=== PATIENT | female | born 1955 | race Caucasian/White ===

== ENCOUNTER → 2016-07-08 | Outpatient (CLI) | payer OTHER, MEDICAID ==
[~2016-07-08] MED LIST: 'XANAX1 MG PO; ALBUTEROL0.09 MG/A2 IH; ALL DAY ALLERGY10 MG PO; ALPRAZOLAM2 MG PO; AMBIEN10 MG PO; ANAPROX DS550 MG PO; ATIVAN1 MG PO; ATIVAN2 MG PO; BACTRIM DS 8001 TA1 PO; CARAFATE1 G1 PO; CARTIA XT180 MG PO; CATAFLAM50 MG PO; CIPRO250 MG PO; CIPRO500 MG PO; CIPROFLOXACIN500 MG PO; CYCLOBENZAPRINE10 MG PO; DAYPRO600 M1 PO; DELTASONE10 MG PO; DEPAKOTE250 MG PO; DEPAKOTE500 MG PO; DIFLUCAN100 MG PO; DOXYCYCLINE100 M3 PO; EFFEXOR-XR150 MG PO; ESKALITH-CR450 MG PO; FLEXERIL10 MG PO; FLONASE 0.05% 121 EA NAS; FOSAMAX70 M1 PO; HYDROCODONE BIT1 T11 PO; KLONOPIN2 MG PO; LAMICTAL1 TAB PO; LAMOTRIGINE150 MG PO; LATU120T PO; LOMOTIL 0.025 M1 TAB PO; MEDROL DOSEPAK4 MG PO; MELOXICAM7.5 MG PO; MIRTAZAPINE15 M2 PO; MOBIC7.5 MG PO; MOTRIN600 MG PO; MOTRIN800 MG PO; Motrin,Rufen800 MG PO; NAPROSYN500 MG PO; OMNICEF300 MG PO; PEPCID20 MG PO; PERCOCET 325 MG1 TA2 PO; PERCOCET 325 MG1 TA7 PO; PHENERGAN W/DM120 ML PO; PHENYTOIN100 MG PO; PREDNICOT10 MG PO; PREDNISONE10 MG PO; PREDNISONE20 MG PO; PRILOSEC20 M1 PO; PRILOSEC20 MG PO; PROAIR HFA0.09 MG/AC IH; PROAIR HFA8.5 GM INH; PROMETHAZINE12.5 M5 PO; Percocet 325 MG1 TAB PO; QVAR 80MCG/INH7.3 G1 IH; REGLAN5 MG PO; RISPERDAL3 MG PO; RISPERIDONE3 M2 PO; ROBAXIN750 MG PO; ROBITUSSIN AC 110 ML PO; ROPINIROLE HCL2 MG PO; SUBOXONE 12 MG1 EACH SL; SUBOXONE 8 MG-21 TA2 SL; THERAPEUTIC VIT1 CAP PO; TORADOL10 MG PO; VENLAFAXINE HY150 M2 PO; VENLAFAXINE HYD75 M3 PO; VIBRAMYCIN100 MG PO; VICODIN 5/500 505 MG PO; VICODIN ES 7501 TA1 PO; VISTARIL50 MG PO; XANAX XR3 MG PO; XANAX2 M1 PO; ZITHROMAX250 MG PO; ZOFRAN ODT4 MG PO; ZOFRAN4 MG PO; ZOLPIDEM TART10 MG PO; ZYPREXA10 MG PO; Zofran4 MG PO; [UNRECOGNIZED DRUG - OTHER]
== END | disposition home or self-care (01) ==
LOC: MRI 06-27 11:00
DX: M75.91 Shoulder lesion, unspecified, right shoulder (principal)

== ENCOUNTER 2016-09-17 04:50 | Emergency (ER) | payer OTHER, MEDICAID ==
[~2016-09-17] VITALS: Ht 157.4 cm; Wt 74.8 kg
[2016-09-17 04:53] VITALS: BP 163/78
== END 2016-09-17 06:13 | disposition left against medical advice (07) ==
LOC: ED 04:50
DX: M25.511 Pain in right shoulder (principal); F17.200 Nicotine dependence, unspecified, uncomplicated; Z90.49 Acquired absence of other specified parts of digestive tract; E78.00 Pure hypercholesterolemia, unspecified; K21.9 Gastro-esophageal reflux disease without esophagitis; J44.9 Chronic obstructive pulmonary disease, unspecified; J45.909 Unspecified asthma, uncomplicated; Z79.899 Other long term (current) drug therapy

== ENCOUNTER → 2016-10-10 | Outpatient (CLI) | payer OTHER, MEDICAID | END | disposition home or self-care (01) | LOC: RAD 09:55 | DX: M48.07 Spinal stenosis, lumbosacral region (principal); I70.0 Atherosclerosis of aorta; G89.29 Other chronic pain ==

== ENCOUNTER → 2016-10-18 | Outpatient (CLI) | payer OTHER, MEDICAID | END | disposition home or self-care (01) | LOC: ORTHO 02:00 | DX: M47.892 Other spondylosis, cervical region (principal); M25.78 Osteophyte, vertebrae; M75.41 Impingement syndrome of right shoulder; M25.531 Pain in right wrist ==

== ENCOUNTER → 2017-01-17 | Outpatient (CLI) | payer OTHER, MEDICAID | END | disposition home or self-care (01) | LOC: RAD 09:55 | DX: M16.11 Unilateral primary osteoarthritis, right hip (principal) ==

== ENCOUNTER → 2017-03-06 | Outpatient (CLI) | payer OTHER, MEDICAID | END | disposition home or self-care (01) | LOC: MRI 03-03 13:00 | DX: D32.9 Benign neoplasm of meninges, unspecified (principal); I67.82 Cerebral ischemia ==

== ENCOUNTER 2017-05-13 08:58 | Emergency (ER) | payer BC, MEDICAID ==
[~2017-05-13] VITALS: Ht 157.4 cm; Wt 68.9 kg
[2017-05-13 09:06] VITALS: BP 177/74
[2017-05-13 09:50] LABS: BASO % 0.3 % (0.0-1.0); EOS % 0.4 % (1.0-4.0); HEMATOCRIT 42.3 % (37.0-47.0); HEMOGLOBIN 14.4 g/dl (12.0-16.0); LYMPH # 1.2 10*3/uL (1.3-4.4); LYMPH % 12.8 % (27.0-41.0); MEAN CELL VOLUME 86.2 fl (81.0-99.0); MEAN CORPUSCULAR HGB 29.3 pg (27.0-31.0); MEAN PLATELET VOLUME 10.1 fl (9.6-12.3); MONO # 0.5 10*3/uL (0.1-1.0); MONO % 5.6 % (3.0-9.0); NEUT # 7.5 10*3/uL (2.3-7.9); NEUT % 80.6 % (47.0-73.0); PLATELET COUNT AUTOMATED 346 10*3/uL (130-400); RED BLOOD COUNT 4.91 10*6/uL (4.10-5.10); RED CELL DISTRI WIDTH 14.9 % (0-14.5); WHITE BLOOD COUNT 9.3 10*3/uL (4.8-10.8)
[2017-05-13 10:00] LABS: BILIRUBIN NEGATIVE (NEGATIVE); BLOOD NEGATIVE (NEGATIVE); CLARITY SL CLOUDY (CLEAR); COLOR YELLOW (YELLOW); GLUCOSE NEGATIVE (NEGATIVE); KETONE NEGATIVE (NEGATIVE); LEUKO ESTERASE NEGATIVE (NEGATIVE); NITRITE NEGATIVE (NEGATIVE); PH 8.5 (5.0-9.0); UROBILINOGEN 0.2 E.U./dl (0.2-1.0)
[2017-05-13 10:04] LABS: ALBUMIN 3.9 gm/dl (3.1-4.5); ALKALINE PHOSPHATASE 126 U/L (45-117); BUN 10 mg/dl (7-24); CHLORIDE 108 mmol/L (98-107); CREATININE 0.88 mg/dL (0.55-1.02); POTASSIUM 3.6 mmol/L (3.5-5.1); SGOT/AST 19 IU/L (3-35); SGPT/ALT 17 U/L (12-78); SODIUM 141 mmol/L (136-145); TOTAL PROTEIN 7.9 gm/dL (6.4-8.2)
[2017-05-13 10:21] LABS: BACTERIA 1+
[2017-05-13] MEDS ORDERED: Zofran4 MG PO (10:30)
== END 2017-05-13 10:41 | disposition home or self-care (01) ==
LOC: ED 08:58
PROVIDERS: Emergency Medicine
DX: K29.70 Gastritis, unspecified, without bleeding (principal); J45.909 Unspecified asthma, uncomplicated; F41.9 Anxiety disorder, unspecified; G89.29 Other chronic pain; J44.9 Chronic obstructive pulmonary disease, unspecified; F32.9 Major depressive disorder, single episode, unspecified; K21.9 Gastro-esophageal reflux disease without esophagitis; E78.00 Pure hypercholesterolemia, unspecified; F17.200 Nicotine dependence, unspecified, uncomplicated; Z68.29 Body mass index [BMI] 29.0-29.9, adult; Z79.899 Other long term (current) drug therapy

== ENCOUNTER 2017-05-17 02:31 | Emergency (ER) | payer BC, MEDICAID ==
[~2017-05-17] VITALS: Ht 162.5 cm; Wt 65.8 kg
--- NOTE | ~2017-05-17 | EKG ---
[place], [place] ELECTROCARDIOGRAM REPORT NAME: ETHEL CASTRO UNIT #: [id number] ROOM: DOCTOR: ANDREINA CARDENAS MD BIRTHDATE: [birth year] DOS: 05/17/2017 TIME: 0317 hours. Normal sinus rhythm at 73 beats per minute. The tracing is normal. No previous tracing is available for comparison. ANDREINA CARDENAS MD CM:EKGRPT:ELECTROCARDIOGRAM REPORT 1719 [id number] ANDREINA CARDENAS MD
[2017-05-17 03:21] LABS: BASO % 0.3 % (0.0-1.0); EOS # 0.1 10*3/uL (0.0-0.4); EOS % 1.4 % (1.0-4.0); HEMATOCRIT 41.6 % (37.0-47.0); HEMOGLOBIN 13.9 g/dl (12.0-16.0); LYMPH # 2.2 10*3/uL (1.3-4.4); LYMPH % 23.4 % (27.0-41.0); MEAN CELL VOLUME 86.3 fl (81.0-99.0); MEAN CORPUSCULAR HGB 28.8 pg (27.0-31.0); MEAN CORPUSCULAR HGB CONC 33.4 g/dl (33.0-37.0); MEAN PLATELET VOLUME 10.2 fl (9.6-12.3); MONO # 0.7 10*3/uL (0.1-1.0); NEUT # 6.2 10*3/uL (2.3-7.9); NEUT % 66.6 % (47.0-73.0); PLATELET COUNT AUTOMATED 318 10*3/uL (130-400); RED BLOOD COUNT 4.82 10*6/uL (4.10-5.10); RED CELL DISTRI WIDTH 14.5 % (0-14.5); WHITE BLOOD COUNT 9.3 10*3/uL (4.8-10.8)
[2017-05-17 03:44] LABS: ALBUMIN 3.6 gm/dl (3.1-4.5); ALKALINE PHOSPHATASE 109 U/L (45-117); BUN 11 mg/dl (7-24); CHLORIDE 111 mmol/L (98-107); CREATININE 0.67 mg/dL (0.55-1.02); LIPASE 395 U/L (73-393); SGOT/AST 28 IU/L (3-35); SGPT/ALT 36 U/L (12-78); SODIUM 143 mmol/L (136-145); TOTAL PROTEIN 7.1 gm/dL (6.4-8.2)
[2017-05-17 03:45] LABS: TROPONIN I < 0.015 ng/ml (<0.045)
[2017-05-17 03:46] LABS: BILIRUBIN NEGATIVE (NEGATIVE); BLOOD NEGATIVE (NEGATIVE); CLARITY SL CLOUDY (CLEAR); COLOR YELLOW (YELLOW); GLUCOSE NEGATIVE (NEGATIVE); KETONE NEGATIVE (NEGATIVE); LEUKO ESTERASE NEGATIVE (NEGATIVE); NITRITE NEGATIVE (NEGATIVE); PH 7.5 (5.0-9.0); UROBILINOGEN 0.2 E.U./dl (0.2-1.0)
[2017-05-17 04:05] LABS: BACTERIA 1+; EPITHELIAL CELLS 15-20; YEAST 1+
[2017-05-17 04:23] VITALS: BP 143/59
[2017-05-17] MEDS ORDERED: Phenergan25 MG PO (06:01)
== END 2017-05-17 06:39 | disposition home or self-care (01) ==
LOC: ED 02:31
PROVIDERS: Emergency Medicine Emergency Medical Services
DX: K52.9 Noninfective gastroenteritis and colitis, unspecified (principal); J44.9 Chronic obstructive pulmonary disease, unspecified; G89.29 Other chronic pain; K21.9 Gastro-esophageal reflux disease without esophagitis; E78.00 Pure hypercholesterolemia, unspecified; F17.200 Nicotine dependence, unspecified, uncomplicated; E66.9 Obesity, unspecified; Z68.29 Body mass index [BMI] 29.0-29.9, adult; Z90.89 Acquired absence of other organs; Z98.890 Other specified postprocedural states; Z79.899 Other long term (current) drug therapy

== ENCOUNTER → 2017-05-26 | Outpatient (CLI) | payer BC, MEDICAID ==
[~2017-05-26] MED LIST changes: +Phenergan25 MG PO
== END | disposition home or self-care (01) ==
LOC: MRI 12:34
DX: N83.201 Unspecified ovarian cyst, right side (principal); K57.30 Diverticulosis of large intestine without perforation or abscess without bleeding; R63.4 Abnormal weight loss

== ENCOUNTER 2017-08-18 16:39 | Emergency (ER) | payer OTHER, MEDICAID ==
[~2017-08-18] VITALS: Wt 65.8 kg
[2017-08-18 16:39] VITALS: BP 127/62
== END 2017-08-18 17:54 | disposition home or self-care (01) ==
LOC: ED 16:39
DX: G89.18 Other acute postprocedural pain (principal); J44.9 Chronic obstructive pulmonary disease, unspecified; K21.9 Gastro-esophageal reflux disease without esophagitis; E78.00 Pure hypercholesterolemia, unspecified; E66.9 Obesity, unspecified; J45.909 Unspecified asthma, uncomplicated; I10 Essential (primary) hypertension; I25.10 Atherosclerotic heart disease of native coronary artery without angina pectoris; Z98.890 Other specified postprocedural states; Z68.29 Body mass index [BMI] 29.0-29.9, adult

== ENCOUNTER 2017-08-23 03:47 | Inpatient (IN) | payer OTHER, MEDICAID ==
[2017-08-23] VITALS (7 sets, daily range): BP systolic 116–140; BP diastolic 50–76
[~2017-08-23] VITALS: Ht 157.4 cm; Wt 67.3 kg
--- NOTE | ~2017-08-23 | WRIGHTHP ---
[place], [place] PATIENT HISTORY AND PHYSICAL EXAM NAME: ETHEL CASTRO [facility] #: [id number] UNIT #: [id number] ROOM: 503 DOCTOR: PATRICIA GUTHRIE MD BIRTHDATE: [birth year] DOS: 08/23/2017 HISTORY OF PRESENT ILLNESS: The patient is a 61-year-old female with a past medical history of; 1. COPD. 2. Nicotine smoke dependence. 3. Bipolar disorder. 4. Chronic primary insomnia. 5. GERD and esophagitis. 6. Generalized anxiety disorder. The patient presented to the Emergency Department with some complaints of abdominal pains in the right lower quadrant. CT scan of the abdomen was performed, which showed recent partial right nephrectomy with some post-surgical changes. The findings of the CAT scan could just be postsurgical normal expected postsurgical changes versus an infection. The patient not showing any other signs of infection, no leukocytosis, no significant fever and she is eating well. No chest pain, no shortness of breath, no GI or urinary symptoms. REVIEW OF SYSTEMS: LUNGS: The patient smokes cigarettes and has chronic shortness of breath. GASTROINTESTINAL: No nausea, vomiting or diarrhea, but the patient says she has not moved her bowels recently. CARDIOVASCULAR: No chest pains or palpitations. FAMILY HISTORY: Noncontributory. MEDICATIONS: The patient takes venlafaxine, omeprazole, Latuda, lamotrigine, diltiazem, cetirizine, venlafaxine, ropinirole, risperidone, mirtazapine and Percocet for pain. ALLERGIES: No known drug allergies. PHYSICAL EXAMINATION: GENERAL APPEARANCE: The patient is alert and oriented x 3, in no visible distress. HEENT AND NECK: Extraocular movements are intact. Sclerae are anicteric. Oral mucosa is moist and clean. No obvious facial weakness. Neck is supple without any lymphadenopathy. No thyromegaly. No JVD. No carotid arterial bruits. LUNGS: Clear to auscultation. No wheezing. No rhonchi. CARDIOVASCULAR SYSTEM: Heart rate is regular in rate and rhythm. S1 and S2 normally audible. No significant murmur or any other abnormal cardiac sounds. ABDOMEN: Obese abdomen. Healing surgical incisions without any signs of infection. Abdominal exam is benign. EXTREMITIES: Without significant cyanosis or edema. Warm to touch. CENTRAL NERVOUS SYSTEM: Alert and oriented x 3. Cranial nerves II-XII are intact. Speech is normal. The patient is able to move all extremities. Normal muscle strength. Deep tendon reflexes are equal on both sides. Plantars were [place], [place] PATIENT HISTORY AND PHYSICAL EXAM NAME: ETHEL CASTRO UNIT #: [id number] ROOM: [facility] DOCTOR: PATRICIA GUTHRIE MD BIRTHDATE: [birth year] downgoing. LABORATORY DATA: No leukocytosis. Normal CBC. Hemoglobin 11.5. Normal platelets. Normal serum electrolytes except for creatinine elevated at 1.36. Normal bilirubin, liver enzymes. Urinalysis with 16-20 wbc's sent for cultures. IMPRESSION AND PLAN: 1. The patient presenting with some right lower quadrant abdominal pain. CAT scan not showing any acute abnormality, just some postsurgical changes. I will consult Dr. Abdi, the general surgeon to evaluate patient and make recommendation. The patient is doing well. She will be discharged to home and if Dr. Abdi considers infection, then I will make an attempt to transfer her to [facility] where she had her surgery, but so far there is no leukocytosis, no fever and no severe abdominal pains to suggest infection. For pain, the patient says Percocet works well for her, so it will be continued and I will repeat her blood counts in the morning. The patient's lactic acid level was 1.3 and she is tolerating diet very well. 2. History of bipolar disorder. The patient under treatment of psychiatrist and treated with risperidone, venlafaxine, lamotrigine and Latuda, which are being continued. 3. Benign essential hypertension treated and controlled. The patient is on diltiazem. 4. Generalized anxiety disorder treated with Xanax as needed. 5. Nicotine smoke dependence. The patient encouraged to stop smoking cigarettes. 6. Centrilobular emphysema with no increasing shortness of breath recently. The patient to be put on stool softener, but she is giving conflicting stories. The patient told her nurse today that she just moved her bowels yesterday, so she may not be constipated. PATRICIA GUTHRIE MD CM:HISPHYS:PATIENT HISTORY AND PHYSICAL EXAMINATION 28 00 PATRICIA GUTHRIE MD 08/23/17 2100 interface
--- NOTE | ~2017-08-23 | DS ---
[place], [place] DISCHARGE SUMMARY [id number] UNIT #: [id number] ROOM: 503 DOCTOR: PATRICIA GUTHRIE MD BIRTHDATE: [birth year] DOS: 08/24/2017 DISCHARGE DIAGNOSES: 1. Suspected post-surgical infection after partial right nephrectomy. 2. History of bipolar disorder. 3. Benign essential hypertension. 4. Generalized anxiety disorder. 5. Nicotine smoke dependence. 6. Centrilobular emphysema. 7. Obesity. 8. Gastroesophageal reflux disease and esophagitis. 9. Chronic primary insomnia. 10. Nicotine smoke dependence and chroonic obstructive pulmonary disease. HOSPITAL COURSE: 1. The patient presented to the Emergency Department with right lower quadrant abdominal pains. CT scan of the abdomen and pelvis performed thriough the Emergency Department showed recent partial right nephrectomy and postsurgical changes versus postsurgical infection. Dr. Abdi, general surgeon was consulted and he believes that this is a postsurgical infection at the surgical site. The patient otherwise has no fever, no leukocytosis and she appears comfortable now while she is being treated with Percocet for pain. The patient apparently first told me that she had the surgery at [facility], but now she is saying she was treated at the [facility]. I am going to make an attempt to contact the [facility] and transfer her there for further management. 2. Nicotine smoke dependence. The patient encouraged to stop. 3. Bipolar disorder and generalized anxiety disorder. All her home medications and treatment was continued. 4. Centrilobular emphysema with chronic cough, no increasing shortness of breath. 5. Benign essential hypertension. The patient remains on diltiazem. Blood pressures are well controlled. She remained slightly bradycardic because of the diltiazem. LABORATORY DATA: CT scan of the abdomen results as mentioned above. Urine cultures negative. No leukocytosis. Normal CBC. BUN and creatinine 14 and 1.3. Normal serum electrolytes, bilirubin, liver enzymes. DISCHARGE MEDICATION: Percocet p.r.n., venlafaxine 150 mg daily, Latuda 120 mg b.i.d., diltiazem CD 180 mg a day, cetirizine 10 mg a day, omeprazole 40 mg b.i.d., Colace 200 mg at bedtime, venlafaxine another dose 75 mg at bedtime, 150 mg in the morning, ropinirole 2 mg at bedtime, risperidone 3 mg at bedtime, mirtazapine 15 mg at bedtime, lamotrigine 150 mg b.i.d., DuoNeb q.i.d. p.r.n., Tylenol 1000 mg every 8 hours, Xanax 2 mg t.i.d. [place], [place] DISCHARGE SUMMARY NAME: ETHEL CASTRO UNIT #: [id number] ROOM: [facility] DOCTOR: PATRICIA GUTHRIE MD BIRTHDATE: [birth year] PATRICIA GUTHRIE MD CM:DISCHARG [id number] 1718 PATRICIA GUTHRIE MD 08/24/17 1717 interface
[2017-08-23 04:24] LABS: BASO # 0.1 10*3/uL (0.0-0.1); BASO % 0.8 % (0.0-1.0); EOS # 0.6 10*3/uL (0.0-0.4); HEMATOCRIT 36.2 % (37.0-47.0); HEMOGLOBIN 11.5 g/dl (12.0-16.0); LYMPH # 1.8 10*3/uL (1.3-4.4); LYMPH % 21.1 % (27.0-41.0); MEAN CELL VOLUME 88.1 fl (81.0-99.0); MEAN CORPUSCULAR HGB CONC 31.8 g/dl (33.0-37.0); MEAN PLATELET VOLUME 9.9 fl (9.6-12.3); MONO # 0.5 10*3/uL (0.1-1.0); MONO % 6.3 % (3.0-9.0); NEUT # 5.5 10*3/uL (2.3-7.9); NEUT % 64.2 % (47.0-73.0); PLATELET COUNT AUTOMATED 399 10*3/uL (130-400); RED BLOOD COUNT 4.11 10*6/uL (4.10-5.10); RED CELL DISTRI WIDTH 14.4 % (0-14.5); WHITE BLOOD COUNT 8.6 10*3/uL (4.8-10.8)
[2017-08-23 04:39] LABS: ALBUMIN 3.2 gm/dl (3.1-4.5); CREATININE 1.36 mg/dL (0.55-1.02); POTASSIUM 3.8 mmol/L (3.5-5.1); TOTAL PROTEIN 7.3 gm/dL (6.4-8.2)
[2017-08-23 04:42] LABS: BILIRUBIN NEGATIVE (NEGATIVE); BLOOD 1+ (NEGATIVE); CLARITY CLEAR (CLEAR); COLOR YELLOW (YELLOW); GLUCOSE NEGATIVE (NEGATIVE); KETONE NEGATIVE (NEGATIVE); LEUKO ESTERASE 2+ (NEGATIVE); NITRITE NEGATIVE (NEGATIVE); PH 5.5 (5.0-9.0); SPECIFIC GRAVITY 1.015 (1.005-1.030); UROBILINOGEN 0.2 E.U./dl (0.2-1.0)
[2017-08-23 05:05] LABS: BACTERIA 1+; EPITHELIAL CELLS TNTC; WBC 16-20 wbc/hpf (0-5); YEAST TRACE
[2017-08-24] VITALS: BP 118/54
[2017-08-24 08:00] VITALS: BP 134/64
[2017-08-24 08:04] LABS: BASO # 0.1 10*3/uL (0.0-0.1); BASO % 0.8 % (0.0-1.0); EOS # 0.6 10*3/uL (0.0-0.4); EOS % 7.1 % (1.0-4.0); HEMATOCRIT 38.3 % (37.0-47.0); HEMOGLOBIN 12.2 g/dl (12.0-16.0); LYMPH # 1.7 10*3/uL (1.3-4.4); LYMPH % 19.4 % (27.0-41.0); MEAN CELL VOLUME 87.2 fl (81.0-99.0); MEAN CORPUSCULAR HGB 27.8 pg (27.0-31.0); MEAN CORPUSCULAR HGB CONC 31.9 g/dl (33.0-37.0); MEAN PLATELET VOLUME 10.1 fl (9.6-12.3); MONO # 0.6 10*3/uL (0.1-1.0); MONO % 6.4 % (3.0-9.0); NEUT # 5.7 10*3/uL (2.3-7.9); NEUT % 65.5 % (47.0-73.0); PLATELET COUNT AUTOMATED 420 10*3/uL (130-400); RED BLOOD COUNT 4.39 10*6/uL (4.10-5.10); RED CELL DISTRI WIDTH 14.4 % (0-14.5); WHITE BLOOD COUNT 8.7 10*3/uL (4.8-10.8)
[2017-08-24 08:31] LABS: BUN 15 mg/dl (7-24); CHLORIDE 107 mmol/L (98-107); POTASSIUM 4.1 mmol/L (3.5-5.1); SODIUM 142 mmol/L (136-145)
[2017-08-24 16:00] VITALS: BP 136/68
== END 2017-08-24 18:07 | disposition left against medical advice (07) | DRG 863 ==
LOC: ED 03:47 → EDHOLD 06:58 → 5E 07:30
PROVIDERS: Emergency Medicine; Internal Medicine
DX: T81.4XXA Infection following a procedure, initial encounter (principal); J43.2 Centrilobular emphysema; Y83.8 Other surgical procedures as the cause of abnormal reaction of the patient, or of later complication, without mention of misadventure at the time of the procedure; E78.00 Pure hypercholesterolemia, unspecified; F17.200 Nicotine dependence, unspecified, uncomplicated; F31.9 Bipolar disorder, unspecified; F51.01 Primary insomnia; E66.9 Obesity, unspecified; K21.0 Gastro-esophageal reflux disease with esophagitis; F41.1 Generalized anxiety disorder; I10 Essential (primary) hypertension; M25.511 Pain in right shoulder; G89.29 Other chronic pain; Z91.81 History of falling; Z82.49 Family history of ischemic heart disease and other diseases of the circulatory system; Y92.89 Other specified places as the place of occurrence of the external cause; Z79.899 Other long term (current) drug therapy; Z80.9 Family history of malignant neoplasm, unspecified; Z81.8 Family history of other mental and behavioral disorders; Z90.5 Acquired absence of kidney; Z68.27 Body mass index [BMI] 27.0-27.9, adult

== ENCOUNTER 2017-12-23 00:32 | Emergency (ER) | payer OTHER, MEDICAID ==
[~2017-12-23] VITALS: Ht 157.4 cm; Wt 64.4 kg
[2017-12-23 00:33] VITALS: BP 122/70
[2017-12-23] MEDS ORDERED: CYCLOBENZAPRINE10 MG PO (00:42)
== END 2017-12-23 00:59 | disposition home or self-care (01) ==
LOC: ED 00:32
DX: G89.29 Other chronic pain (principal); M54.9 Dorsalgia, unspecified; J44.9 Chronic obstructive pulmonary disease, unspecified; K21.9 Gastro-esophageal reflux disease without esophagitis; E78.00 Pure hypercholesterolemia, unspecified; E66.3 Overweight; F17.200 Nicotine dependence, unspecified, uncomplicated; Z79.899 Other long term (current) drug therapy; Z68.25 Body mass index [BMI] 25.0-25.9, adult; Z98.890 Other specified postprocedural states

== ENCOUNTER 2017-12-23 08:27 | Emergency (ER) | payer OTHER, MEDICAID ==
[~2017-12-23] VITALS: Wt 72.6 kg
[2017-12-23 08:28] VITALS: BP 140/89
[2017-12-23 09:00] LABS: BILIRUBIN NEGATIVE (NEGATIVE); BLOOD NEGATIVE (NEGATIVE); CLARITY CLOUDY (CLEAR); COLOR YELLOW (YELLOW); GLUCOSE NEGATIVE (NEGATIVE); KETONE NEGATIVE (NEGATIVE); LEUKO ESTERASE 2+ (NEGATIVE); NITRITE NEGATIVE (NEGATIVE); PH 6.5 (5.0-9.0); SPECIFIC GRAVITY 1.015 (1.005-1.030); UROBILINOGEN 0.2 E.U./dl (0.2-1.0)
[2017-12-23 09:14] LABS: BACTERIA 3+; EPITHELIAL CELLS 40-50; WBC TNTC wbc/hpf (0-5)
== END 2017-12-23 09:28 | disposition home or self-care (01) ==
LOC: ED 08:27
PROVIDERS: Emergency Medicine
DX: N39.0 Urinary tract infection, site not specified (principal); G89.29 Other chronic pain; M54.5 Low back pain; J44.9 Chronic obstructive pulmonary disease, unspecified; K21.9 Gastro-esophageal reflux disease without esophagitis; E78.00 Pure hypercholesterolemia, unspecified; E66.3 Overweight; F17.200 Nicotine dependence, unspecified, uncomplicated; Z79.899 Other long term (current) drug therapy; Z68.25 Body mass index [BMI] 25.0-25.9, adult; Z98.890 Other specified postprocedural states

== ENCOUNTER 2018-01-09 00:34 | Emergency (ER) | payer OTHER, MEDICAID ==
[~2018-01-09] VITALS: Ht 157.4 cm; Wt 64.9 kg
[2018-01-09 00:35] VITALS: BP 134/99
[2018-01-09 01:11] LABS: BASO # 0.1 10*3/uL (0.0-0.1); BASO % 0.6 % (0.0-1.0); EOS # 0.2 10*3/uL (0.0-0.4); EOS % 1.8 % (1.0-4.0); HEMATOCRIT 40.7 % (37.0-47.0); HEMOGLOBIN 13.7 g/dl (12.0-16.0); LYMPH # 1.6 10*3/uL (1.3-4.4); LYMPH % 16.6 % (27.0-41.0); MEAN CORPUSCULAR HGB 29.3 pg (27.0-31.0); MEAN CORPUSCULAR HGB CONC 33.7 g/dl (33.0-37.0); MEAN PLATELET VOLUME 9.8 fl (9.6-12.3); MONO # 0.5 10*3/uL (0.1-1.0); MONO % 5.2 % (3.0-9.0); NEUT # 7.3 10*3/uL (2.3-7.9); NEUT % 75.3 % (47.0-73.0); PLATELET COUNT AUTOMATED 302 10*3/uL (130-400); RED BLOOD COUNT 4.68 10*6/uL (4.10-5.10); RED CELL DISTRI WIDTH 15.3 % (0-14.5); WHITE BLOOD COUNT 9.7 10*3/uL (4.8-10.8)
[2018-01-09 01:27] LABS: ALBUMIN 3.7 gm/dl (3.1-4.5); ALKALINE PHOSPHATASE 121 U/L (45-117); BUN 13 mg/dl (7-24); CHLORIDE 109 mmol/L (98-107); CREATININE 1.04 mg/dL (0.55-1.02); LIPASE 382 U/L (73-393); POTASSIUM 3.7 mmol/L (3.5-5.1); SGOT/AST 15 IU/L (3-35); SGPT/ALT 16 U/L (12-78); SODIUM 145 mmol/L (136-145); TOTAL PROTEIN 7.3 gm/dL (6.4-8.2)
[2018-01-09 01:38] LABS: BILIRUBIN NEGATIVE (NEGATIVE); BLOOD NEGATIVE (NEGATIVE); CLARITY CLEAR (CLEAR); COLOR YELLOW (YELLOW); GLUCOSE NEGATIVE (NEGATIVE); KETONE NEGATIVE (NEGATIVE); LEUKO ESTERASE TRACE (NEGATIVE); NITRITE NEGATIVE (NEGATIVE); PH 8.5 (5.0-9.0); UROBILINOGEN 0.2 E.U./dl (0.2-1.0)
[2018-01-09 01:50] LABS: BACTERIA 2+; EPITHELIAL CELLS 15-20; RBC 0-2 rbc/hpf (0-2); YEAST 1+
== END 2018-01-09 02:11 | disposition home or self-care (01) ==
LOC: ED 00:34
PROVIDERS: Student in an Organized Health Care Education/Training Program
DX: R19.7 Diarrhea, unspecified (principal); R11.0 Nausea; F17.200 Nicotine dependence, unspecified, uncomplicated; J44.9 Chronic obstructive pulmonary disease, unspecified; K21.9 Gastro-esophageal reflux disease without esophagitis; E78.00 Pure hypercholesterolemia, unspecified; E66.3 Overweight; G89.29 Other chronic pain; Z98.890 Other specified postprocedural states; Z90.89 Acquired absence of other organs; Z79.899 Other long term (current) drug therapy; Z68.29 Body mass index [BMI] 29.0-29.9, adult

== ENCOUNTER → 2018-01-28 | Outpatient (CLI) | payer OTHER, MEDICAID ==
[~2018-01-28] MED LIST changes: +CYCLOBENZAPRINE5 M3 PO
== END | disposition home or self-care (01) ==
LOC: ORTHO 01:15
DX: M25.531 Pain in right wrist (principal)

== ENCOUNTER 2018-02-05 15:07 | Emergency (ER) | payer OTHER, MEDICAID ==
[~2018-02-05] VITALS: Ht 157.4 cm; Wt 68.0 kg
[~2018-02-05 15:07] MED LIST changes: -CYCLOBENZAPRINE5 M3 PO
[2018-02-05 15:09] VITALS: BP 135/80
== END 2018-02-05 15:50 | disposition home or self-care (01) ==
LOC: ED 15:07
DX: S61.230A Puncture wound without foreign body of right index finger without damage to nail, initial encounter (principal); Z23 Encounter for immunization; Z79.899 Other long term (current) drug therapy; W26.8XXA Contact with other sharp object(s), not elsewhere classified, initial encounter; Y93.89 Activity, other specified; Y92.810 Car as the place of occurrence of the external cause; Y99.8 Other external cause status

== ENCOUNTER 2018-02-24 18:12 | Emergency (ER) | payer OTHER, MEDICAID ==
[~2018-02-24] VITALS: Wt 68.0 kg
--- NOTE | ~2018-02-24 | EKG ---
[place], [place] ELECTROCARDIOGRAM REPORT NAME: ETHEL CASTRO UNIT #: [id number] ROOM: DOCTOR: EPIPHANY DRAFT REPORT BIRTHDATE: [birth year] [facility] Test Date: 2018-02-24 Test Time: 18:15:20 Pat Name: ETHEL CASTRO Department: Room: 6 Gender: F Client Specialist: CHARBEL : 1955 Requested By: MARYANN BRO Order Number: [id number] Reading MD: Constance Grover MD Measurements Intervals [place] Rate: 93 P: 61 WV: 163 QRS: 52 QRSD: 81 T: 74 QT: 384 QTc: 478 Interpretive Statements Sinus rhythm Probable left atrial enlargement Electronically Signed On 02-26-2018 14:31:38 PST by Constance Grover MD CM:EKGRPT:ELECTROCARDIOGRAM REPORT 1815 1431 MARYANN LABOY DRAFT REPORT MARYANN BRO DO
[2018-02-24 18:18] VITALS: BP 158/77
[2018-02-24 18:49] LABS: BASO # 0.1 10*3/uL (0.0-0.1); EOS # 0.3 10*3/uL (0.0-0.4); EOS % 3.5 % (1.0-4.0); HEMATOCRIT 37.6 % (37.0-47.0); HEMOGLOBIN 12.4 g/dl (12.0-16.0); LYMPH # 1.9 10*3/uL (1.3-4.4); LYMPH % 26.1 % (27.0-41.0); MEAN CELL VOLUME 87.6 fl (81.0-99.0); MEAN CORPUSCULAR HGB 28.9 pg (27.0-31.0); MEAN PLATELET VOLUME 9.2 fl (9.6-12.3); MONO # 0.6 10*3/uL (0.1-1.0); MONO % 7.9 % (3.0-9.0); NEUT # 4.4 10*3/uL (2.3-7.9); NEUT % 61.1 % (47.0-73.0); PLATELET COUNT AUTOMATED 260 10*3/uL (130-400); RED BLOOD COUNT 4.29 10*6/uL (4.10-5.10); RED CELL DISTRI WIDTH 13.4 % (0-14.5); WHITE BLOOD COUNT 7.2 10*3/uL (4.8-10.8)
[2018-02-24 19:07] LABS: ALBUMIN 3.3 gm/dl (3.1-4.5); ALKALINE PHOSPHATASE 128 U/L (45-117); BUN 8 mg/dl (7-24); CHLORIDE 107 mmol/L (98-107); CREATININE 0.96 mg/dL (0.55-1.02); POTASSIUM 3.4 mmol/L (3.5-5.1); SGOT/AST 20 IU/L (3-35); SGPT/ALT 13 U/L (12-78); SODIUM 142 mmol/L (136-145); TOTAL PROTEIN 6.8 gm/dL (6.4-8.2)
[2018-02-24 19:10] LABS: TROPONIN I < 0.015 ng/ml (<0.045)
[2018-02-24 19:26] LABS: ACT PARTIAL THROMBO TIME 29.9 SECONDS (20.8-31.5)
[2018-02-24 19:52] LABS: BILIRUBIN NEGATIVE (NEGATIVE); BLOOD NEGATIVE (NEGATIVE); CLARITY CLEAR (CLEAR); COLOR YELLOW (YELLOW); GLUCOSE NEGATIVE (NEGATIVE); KETONE NEGATIVE (NEGATIVE); LEUKO ESTERASE NEGATIVE (NEGATIVE); NITRITE NEGATIVE (NEGATIVE); SPECIFIC GRAVITY <= 1.005 (1.005-1.030); UROBILINOGEN 0.2 E.U./dl (0.2-1.0)
[2018-02-24 20:10] LABS: EPITHELIAL CELLS 0-2; RBC 0-2 rbc/hpf (0-2)
[2018-02-24] MEDS ORDERED: Motrin,Rufen800 MG PO (21:18)
[2018-02-24] MEDS ORDERED: CYCLOBENZAPRINE5 M3 PO (21:18)
== END 2018-02-24 21:41 | disposition left against medical advice (07) ==
LOC: ED 18:12
PROVIDERS: Emergency Medicine; Nurse Practitioner
DX: R07.89 Other chest pain (principal); M54.32 Sciatica, left side; F17.200 Nicotine dependence, unspecified, uncomplicated; Z79.899 Other long term (current) drug therapy

== ENCOUNTER → 2018-03-10 | Outpatient (CLI) | payer OTHER, MEDICAID ==
[~2018-03-10] MED LIST changes: +CYCLOBENZAPRINE5 M3 PO
== END | disposition home or self-care (01) ==
LOC: ORTHO 04:10
DX: M25.552 Pain in left hip (principal)

== ENCOUNTER 2018-04-26 11:10 | Emergency (ER) | payer OTHER, MEDICAID ==
[~2018-04-26] VITALS: Ht 157.4 cm; Wt 68.0 kg
[2018-04-26 11:11] VITALS: BP 140/63
[2018-06-06] MEDS ORDERED: PREDNISONE10 MG PO (12:11)
== END 2018-04-26 13:45 | disposition left against medical advice (07) ==
LOC: ED 11:10
DX: M25.531 Pain in right wrist (principal); F17.200 Nicotine dependence, unspecified, uncomplicated; Z79.899 Other long term (current) drug therapy; X58.XXXA Exposure to other specified factors, initial encounter; Y93.89 Activity, other specified; Y92.89 Other specified places as the place of occurrence of the external cause; Y99.8 Other external cause status

== ENCOUNTER 2018-08-26 14:50 | Emergency (ER) | payer OTHER, MEDICAID ==
[~2018-08-26] VITALS: Ht 157.4 cm; Wt 61.7 kg
[2018-08-26 14:51] VITALS: BP 140/65
[2018-08-26] MEDS ORDERED: Tobrex Ophth S2.5 ML OPH (16:09)
== END 2018-08-26 16:17 | disposition home or self-care (01) ==
LOC: ED 14:50
DX: H10.9 Unspecified conjunctivitis (principal); F17.200 Nicotine dependence, unspecified, uncomplicated; Z79.899 Other long term (current) drug therapy; Z90.49 Acquired absence of other specified parts of digestive tract

== ENCOUNTER → 2018-10-01 | Outpatient (CLI) | payer OTHER, MEDICAID ==
[~2018-10-01] MED LIST changes: +Tobrex Ophth S2.5 ML OPH
[2018-10-01 10:58] LABS: BASO % 0.4 % (0.0-1.0); EOS # 0.1 10*3/uL (0.0-0.4); HEMATOCRIT 42.2 % (37.0-47.0); HEMOGLOBIN 13.6 g/dl (12.0-16.0); LYMPH # 1.6 10*3/uL (1.3-4.4); LYMPH % 23.5 % (27.0-41.0); MEAN CELL VOLUME 88.8 fl (81.0-99.0); MEAN CORPUSCULAR HGB 28.6 pg (27.0-31.0); MEAN CORPUSCULAR HGB CONC 32.2 g/dl (33.0-37.0); MEAN PLATELET VOLUME 9.3 fl (9.6-12.3); MONO # 0.5 10*3/uL (0.1-1.0); MONO % 6.9 % (3.0-9.0); NEUT # 4.6 10*3/uL (2.3-7.9); NEUT % 66.9 % (47.0-73.0); PLATELET COUNT AUTOMATED 259 10*3/uL (130-400); RED BLOOD COUNT 4.75 10*6/uL (4.10-5.10); RED CELL DISTRI WIDTH 15.3 % (0-14.5); WHITE BLOOD COUNT 6.8 10*3/uL (4.8-10.8)
[2018-10-01 11:27] LABS: ALBUMIN 3.5 gm/dl (3.1-4.5); ALKALINE PHOSPHATASE 135 U/L (45-117); BUN 10 mg/dl (7-24); CHLORIDE 107 mmol/L (98-107); CREATININE 0.91 mg/dL (0.55-1.02); POTASSIUM 3.8 mmol/L (3.5-5.1); SGOT/AST 11 IU/L (3-35); SGPT/ALT 14 U/L (12-78); SODIUM 141 mmol/L (136-145); TOTAL PROTEIN 7.2 gm/dL (6.4-8.2)
== END | disposition home or self-care (01) ==
LOC: LAB 10:34
PROVIDERS: Nurse Practitioner Family
DX: L93.0 Discoid lupus erythematosus (principal); Z79.899 Other long term (current) drug therapy

== ENCOUNTER 2019-01-12 10:51 | Emergency (ER) | payer OTHER, MEDICAID ==
[~2019-01-12] VITALS: Ht 157.4 cm; Wt 63.5 kg
== END 2019-01-12 12:16 | disposition home or self-care (01) ==
LOC: ED 10:51
DX: S93.401A Sprain of unspecified ligament of right ankle, initial encounter (principal); F17.200 Nicotine dependence, unspecified, uncomplicated; G89.29 Other chronic pain; J44.9 Chronic obstructive pulmonary disease, unspecified; K21.9 Gastro-esophageal reflux disease without esophagitis; E78.00 Pure hypercholesterolemia, unspecified; E66.9 Obesity, unspecified; Z68.29 Body mass index [BMI] 29.0-29.9, adult; Z98.890 Other specified postprocedural states; Z90.89 Acquired absence of other organs; Z79.899 Other long term (current) drug therapy; X50.1XXA Overexertion from prolonged static or awkward postures, initial encounter; Y93.89 Activity, other specified; Y92.89 Other specified places as the place of occurrence of the external cause; Y99.9 Unspecified external cause status

== ENCOUNTER → 2019-01-28 | Outpatient (CLI) | payer OTHER, MEDICAID | END | disposition home or self-care (01) | LOC: CT 12:50 | DX: J43.8 Other emphysema (principal); F17.200 Nicotine dependence, unspecified, uncomplicated ==

== ENCOUNTER 2019-05-25 14:28 | Emergency (ER) | payer OTHER, MEDICAID ==
[~2019-05-25] VITALS: Ht 157.4 cm; Wt 65.8 kg
[2019-05-25 14:42] VITALS: BP 154/86
[2019-05-25 17:06] LABS: COLOR YELLOW (YELLOW)
[2019-05-25 17:07] LABS: BILIRUBIN NEGATIVE (NEGATIVE); BLOOD NEGATIVE (NEGATIVE); CLARITY CLEAR (CLEAR); GLUCOSE NEGATIVE (NEGATIVE); KETONE NEGATIVE (NEGATIVE); LEUKO ESTERASE NEGATIVE (NEGATIVE); NITRITE NEGATIVE (NEGATIVE); PH 6.5 (5.0-9.0); SPECIFIC GRAVITY 1.005 (1.005-1.030); UROBILINOGEN 0.2 E.U./dl (0.2-1.0)
[2019-05-25 17:12] LABS: EPITHELIAL CELLS 0-2; RBC 0-2 rbc/hpf (0-2); WBC 0-2 wbc/hpf (0-5)
== END 2019-05-25 16:58 | disposition left against medical advice (07) ==
LOC: ED 14:28
PROVIDERS: Nurse Practitioner Family
DX: G89.29 Other chronic pain (principal); M25.552 Pain in left hip; K21.9 Gastro-esophageal reflux disease without esophagitis; J45.909 Unspecified asthma, uncomplicated; F17.200 Nicotine dependence, unspecified, uncomplicated; Z79.899 Other long term (current) drug therapy; Z90.49 Acquired absence of other specified parts of digestive tract; Z98.890 Other specified postprocedural states

== ENCOUNTER → 2019-06-10 | Outpatient (CLI) | payer OTHER, MEDICAID | END | disposition home or self-care (01) | LOC: MRI 09:00 | DX: M16.0 Bilateral primary osteoarthritis of hip (principal); M70.60 Trochanteric bursitis, unspecified hip; M54.5 Low back pain ==

== ENCOUNTER 2019-06-29 07:53 | Emergency (ER) | payer OTHER, MEDICAID ==
[~2019-06-29] VITALS: Ht 157.4 cm; Wt 65.8 kg
[2019-06-29 07:54] VITALS: BP 145/83
[2019-06-29 09:04] LABS: BASO % 0.6 % (0.0-1.0); EOS # 0.1 10*3/uL (0.0-0.4); EOS % 1.8 % (1.0-4.0); HEMATOCRIT 43.4 % (37.0-47.0); HEMOGLOBIN 13.6 g/dl (12.0-16.0); LYMPH # 1.9 10*3/uL (1.3-4.4); LYMPH % 27.3 % (27.0-41.0); MEAN CELL VOLUME 92.5 fl (81.0-99.0); MEAN CORPUSCULAR HGB CONC 31.3 g/dl (33.0-37.0); MEAN PLATELET VOLUME 8.9 fl (9.6-12.3); MONO # 0.4 10*3/uL (0.1-1.0); MONO % 5.3 % (3.0-9.0); NEUT # 4.4 10*3/uL (2.3-7.9); NEUT % 64.6 % (47.0-73.0); PLATELET COUNT AUTOMATED 254 10*3/uL (130-400); RED BLOOD COUNT 4.69 10*6/uL (4.10-5.10); RED CELL DISTRI WIDTH 14.7 % (0-14.5); WHITE BLOOD COUNT 6.8 10*3/uL (4.8-10.8)
[2019-06-29 09:16] LABS: ACT PARTIAL THROMBO TIME 26.8 SECONDS (20.0-32.1); INTERNATIONAL NORM RATIO 0.9 (2.0-3.5)
[2019-06-29 09:17] LABS: ALBUMIN 3.3 gm/dl (3.1-4.5); ALKALINE PHOSPHATASE 146 U/L (45-117); BUN 7 mg/dl (7-24); CHLORIDE 103 mmol/L (98-107); CREATININE 1.04 mg/dL (0.55-1.02); LIPASE 133 U/L (73-393); POTASSIUM 4.5 mmol/L (3.5-5.1); SGOT/AST 14 IU/L (3-35); SGPT/ALT 25 U/L (12-78); SODIUM 136 mmol/L (136-145); TOTAL PROTEIN 6.8 gm/dL (6.4-8.2)
[2019-06-29 09:19] LABS: TROPONIN I < 0.015 ng/ml (<0.045)
== END 2019-06-29 11:06 | disposition left against medical advice (07) ==
LOC: ED 07:53
PROVIDERS: Emergency Medicine
DX: S01.01XA Laceration without foreign body of scalp, initial encounter (principal); S92.901A Unspecified fracture of right foot, initial encounter for closed fracture; R55 Syncope and collapse; F31.9 Bipolar disorder, unspecified; J44.9 Chronic obstructive pulmonary disease, unspecified; K21.9 Gastro-esophageal reflux disease without esophagitis; Z79.899 Other long term (current) drug therapy; W19.XXXA Unspecified fall, initial encounter; Y93.89 Activity, other specified; Y92.89 Other specified places as the place of occurrence of the external cause; Y99.8 Other external cause status

== ENCOUNTER → 2020-05-05 | Outpatient (CLI) | payer OTHER, MEDICAID | END | disposition home or self-care (01) | LOC: MRI 13:48 | PROVIDERS: ATTEND Internal Medicine | DX: M54.5 Low back pain (principal) ==

== ENCOUNTER 2020-07-30 10:30 | Emergency (ER) | payer OTHER, MEDICAID ==
[~2020-07-30] VITALS: Wt 63.5 kg
[2020-07-30 10:43] VITALS: BP 158/110
[2020-08-18] MEDS ORDERED: VRAYLAR3 MG PO (11:55)
[2020-08-18] MEDS ORDERED: DAILY VALUE1 EACH PO (11:55)
[2020-08-18] MEDS ORDERED: CELEBREX100 MG PO (11:56)
[2020-08-18] MEDS ORDERED: NATURE'S BLEND F1 MG PO (11:56)
[2020-08-18] MEDS ORDERED: BELSOMRA20 MG PO (11:56)
[2020-08-18] MEDS ORDERED: TRINTELLIX10 MG PEG (11:57)
== END 2020-07-30 12:48 | disposition home or self-care (01) ==
LOC: ED 10:30
DX: S90.31XA Contusion of right foot, initial encounter (principal); F31.9 Bipolar disorder, unspecified; F41.9 Anxiety disorder, unspecified; J44.9 Chronic obstructive pulmonary disease, unspecified; K21.9 Gastro-esophageal reflux disease without esophagitis; E78.00 Pure hypercholesterolemia, unspecified; F17.200 Nicotine dependence, unspecified, uncomplicated; Z98.890 Other specified postprocedural states; Z88.8 Allergy status to other drugs, medicaments and biological substances; Z79.899 Other long term (current) drug therapy; W22.09XA Striking against other stationary object, initial encounter; Y93.89 Activity, other specified; Y92.89 Other specified places as the place of occurrence of the external cause; Y99.8 Other external cause status

== ENCOUNTER → 2020-08-23 | Day surgery (SDC) | payer OTHER, MEDICAID ==
[~2020-08-23] VITALS: Ht 157.4 cm; Wt 63.5 kg
[~2020-08-23] MED LIST changes: +BELSOMRA20 MG PO; +CELEBREX100 MG PO; +DAILY VALUE1 EACH PO; +NATURE'S BLEND F1 MG PO; +TRINTELLIX10 MG PEG; +VRAYLAR3 MG PO
[2020-08-23 09:40] VITALS: BP 131/87
[2020-08-23 10:48] VITALS: BP 129/87
[2020-08-23 11:03] VITALS: BP 143/103
[2020-08-23 11:18] VITALS: BP 129/87
== END | disposition home or self-care (01) ==
LOC: SDC 08-18 09:30
PROVIDERS: ATTEND Ophthalmology
DX: H25.11 Age-related nuclear cataract, right eye (principal); J45.909 Unspecified asthma, uncomplicated; F41.9 Anxiety disorder, unspecified; F32.9 Major depressive disorder, single episode, unspecified; Z87.11 Personal history of peptic ulcer disease; F17.210 Nicotine dependence, cigarettes, uncomplicated; Z79.899 Other long term (current) drug therapy

== ENCOUNTER 2020-08-24 17:36 | Emergency (ER) | payer OTHER, MEDICAID ==
[~2020-08-24] VITALS: Ht 152.4 cm; Wt 47.6 kg
[2020-08-24 17:36] VITALS: BP 160/100
== END 2020-08-24 18:30 | disposition home or self-care (01) ==
LOC: ED 17:36
DX: F32.9 Major depressive disorder, single episode, unspecified (principal); R45.4 Irritability and anger; Z88.8 Allergy status to other drugs, medicaments and biological substances; Z79.899 Other long term (current) drug therapy; Z98.890 Other specified postprocedural states

== ENCOUNTER → 2020-09-15 | Outpatient (CLI) | payer OTHER, MEDICAID | END | disposition home or self-care (01) | LOC: COVID19 12:49 | PROVIDERS: ATTEND Ophthalmology | DX: Z01.812 Encounter for preprocedural laboratory examination (principal); Z20.822 Contact with and (suspected) exposure to COVID-19 ==

== ENCOUNTER 2020-09-23 08:47 | Emergency (ER) | payer OTHER, MEDICAID ==
[2020-09-23 08:52] VITALS: BP 162/69
[2020-09-23] MEDS ORDERED: CEPACOL INSTAM1 EACH MM (09:18)
[2020-09-23] MEDS ORDERED: OMEPRAZOLE40 MG PO (09:18)
== END 2020-09-23 09:24 | disposition home or self-care (01) ==
LOC: ED 08:47
DX: J02.9 Acute pharyngitis, unspecified (principal); F17.200 Nicotine dependence, unspecified, uncomplicated; Z88.8 Allergy status to other drugs, medicaments and biological substances; Z79.899 Other long term (current) drug therapy; Z98.890 Other specified postprocedural states; Z90.721 Acquired absence of ovaries, unilateral

== ENCOUNTER → 2020-10-20 | Outpatient (CLI) | payer OTHER, MEDICAID ==
[~2020-10-20] MED LIST changes: +CEPACOL INSTAM1 EACH MM; +OMEPRAZOLE40 MG PO
== END | disposition home or self-care (01) ==
LOC: COVID19 02:13 → EDSTATUS 14:30 → COVID19 14:51
PROVIDERS: ATTEND Ophthalmology
DX: Z01.812 Encounter for preprocedural laboratory examination (principal); Z20.822 Contact with and (suspected) exposure to COVID-19

== ENCOUNTER → 2020-10-25 | Day surgery (SDC) | payer OTHER, MEDICAID ==
[~2020-10-25] VITALS: Ht 157.4 cm; Wt 61.7 kg
[~2020-10-25] MED LIST changes: +ASPERCREME76.5 GM T
[2020-10-25 10:11] VITALS: BP 157/85
[2020-10-25 11:22] VITALS: BP 138/75
[2020-10-25 11:37] VITALS: BP 107/70
[2020-10-25 11:48] VITALS: BP 125/79
== END | disposition home or self-care (01) ==
LOC: SDC 09-15 12:30
PROVIDERS: ATTEND Ophthalmology
DX: H25.812 Combined forms of age-related cataract, left eye (principal); F41.9 Anxiety disorder, unspecified; K21.9 Gastro-esophageal reflux disease without esophagitis; J45.909 Unspecified asthma, uncomplicated; F31.9 Bipolar disorder, unspecified; F17.210 Nicotine dependence, cigarettes, uncomplicated; Z79.899 Other long term (current) drug therapy; Z98.890 Other specified postprocedural states

== ENCOUNTER 2020-10-31 06:23 | Emergency (ER) | payer OTHER, MEDICAID ==
[~2020-10-31] VITALS: Ht 157.4 cm; Wt 61.7 kg
[~2020-10-31 06:23] MED LIST changes: -ASPERCREME76.5 GM T
[2020-10-31 07:15] LABS: BASO # 0.1 10*3/uL (0.0-0.1); BASO % 0.6 % (0.0-1.0); EOS # 0.1 10*3/uL (0.0-0.4); EOS % 1.5 % (1.0-4.0); HEMATOCRIT 43.9 % (37.0-47.0); LYMPH % 24.1 % (27.0-41.0); MEAN CELL VOLUME 89.6 fl (81.0-99.0); MEAN CORPUSCULAR HGB 28.8 pg (27.0-31.0); MEAN CORPUSCULAR HGB CONC 32.1 g/dl (33.0-37.0); MEAN PLATELET VOLUME 8.9 fl (9.6-12.3); MONO # 0.7 10*3/uL (0.1-1.0); NEUT # 5.3 10*3/uL (2.3-7.9); NEUT % 65.2 % (47.0-73.0); PLATELET COUNT AUTOMATED 307 10*3/uL (130-400); RED CELL DISTRI WIDTH 15.3 % (0-14.5); WHITE BLOOD COUNT 8.1 10*3/uL (4.8-10.8)
[2020-10-31 07:38] LABS: ALBUMIN 3.2 gm/dl (3.1-4.5); ALKALINE PHOSPHATASE 128 U/L (45-117); BUN 10 mg/dl (7-24); CHLORIDE 109 mmol/L (98-107); CREATININE 0.85 mg/dL (0.55-1.02); LIPASE 336 U/L (73-393); SGOT/AST 25 IU/L (3-35); SGPT/ALT 29 U/L (12-78); SODIUM 140 mmol/L (136-145)
[2020-10-31 07:51] VITALS: BP 148/78
== END 2020-10-31 09:04 | disposition home or self-care (01) ==
LOC: ED 06:23
PROVIDERS: Emergency Medicine
DX: R10.11 Right upper quadrant pain (principal); R11.10 Vomiting, unspecified; R19.7 Diarrhea, unspecified; F17.200 Nicotine dependence, unspecified, uncomplicated; Z90.49 Acquired absence of other specified parts of digestive tract; Z88.8 Allergy status to other drugs, medicaments and biological substances; Z79.899 Other long term (current) drug therapy; F41.9 Anxiety disorder, unspecified; F31.9 Bipolar disorder, unspecified; J44.9 Chronic obstructive pulmonary disease, unspecified; K21.9 Gastro-esophageal reflux disease without esophagitis; E78.00 Pure hypercholesterolemia, unspecified; Z98.890 Other specified postprocedural states; Z90.721 Acquired absence of ovaries, unilateral

== ENCOUNTER 2020-12-24 09:46 | Emergency (ER) | payer OTHER, MEDICAID ==
[~2020-12-24] VITALS: Ht 157.4 cm; Wt 64.4 kg
[2020-12-24 10:10] VITALS: BP 146/83
[2020-12-24] MEDS ORDERED: ASPERCREME76.5 GM T (11:22)
== END 2020-12-24 11:31 | disposition home or self-care (01) ==
LOC: ED 09:46
DX: G89.29 Other chronic pain (principal); K21.9 Gastro-esophageal reflux disease without esophagitis; J44.9 Chronic obstructive pulmonary disease, unspecified; F17.200 Nicotine dependence, unspecified, uncomplicated; Z98.890 Other specified postprocedural states; Z79.899 Other long term (current) drug therapy

== ENCOUNTER → 2021-03-05 | Outpatient (CLI) | payer OTHER, MEDICAID ==
[~2021-03-05] MED LIST changes: +ASPERCREME76.5 GM T
[2021-03-05 12:34] LABS: BASO % 0.3 % (0.0-1.0); EOS # 0.1 10*3/uL (0.0-0.4); EOS % 0.6 % (1.0-4.0); HEMATOCRIT 39.9 % (37.0-47.0); LYMPH # 1.7 10*3/uL (1.3-4.4); LYMPH % 18.4 % (27.0-41.0); MEAN CELL VOLUME 86.4 fl (81.0-99.0); MEAN CORPUSCULAR HGB 28.4 pg (27.0-31.0); MEAN CORPUSCULAR HGB CONC 32.8 g/dl (33.0-37.0); MEAN PLATELET VOLUME 8.9 fl (9.6-12.3); MONO # 0.5 10*3/uL (0.1-1.0); MONO % 4.9 % (3.0-9.0); NEUT % 75.5 % (47.0-73.0); PLATELET COUNT AUTOMATED 224 10*3/uL (130-400); RED BLOOD COUNT 4.62 10*6/uL (4.10-5.10); RED CELL DISTRI WIDTH 14.9 % (0-14.5); WHITE BLOOD COUNT 9.3 10*3/uL (4.8-10.8)
[2021-03-05 12:54] LABS: ALBUMIN 3.6 gm/dl (3.1-4.5); BUN 7 mg/dl (7-24); CHLORIDE 106 mmol/L (98-107); CHOLESTEROL 241 mg/dL (<200); CREATININE 0.91 mg/dL (0.55-1.02); POTASSIUM 3.9 mmol/L (3.5-5.1); SGOT/AST 18 IU/L (3-35); SGPT/ALT 25 U/L (12-78); SODIUM 140 mmol/L (136-145); TOTAL PROTEIN 7.6 gm/dL (6.4-8.2); TRIGLYCERIDES 127 mg/dl (<150)
[2021-03-05 13:00] LABS: ALKALINE PHOSPHATASE 136 U/L (45-117); FREE T4 1.02 ng/dl (0.76-1.46); LDL CHOLESTEROL 148 mg/dL (9-159)
[2021-03-05 13:31] LABS: VITAMIN D, 25-HYDROXY 41.2 ng/mL (30-100)
== END | disposition home or self-care (01) ==
LOC: LAB 12:18
PROVIDERS: ATTEND Internal Medicine
DX: Z13.0 Encounter for screening for diseases of the blood and blood-forming organs and certain disorders involving the immune mechanism (principal); Z13.1 Encounter for screening for diabetes mellitus; Z13.21 Encounter for screening for nutritional disorder; Z13.220 Encounter for screening for lipoid disorders; Z13.228 Encounter for screening for other metabolic disorders; Z13.89 Encounter for screening for other disorder; R53.81 Other malaise; R79.89 Other specified abnormal findings of blood chemistry; E55.9 Vitamin D deficiency, unspecified; D51.9 Vitamin B12 deficiency anemia, unspecified; E03.9 Hypothyroidism, unspecified; D52.9 Folate deficiency anemia, unspecified; I10 Essential (primary) hypertension; F41.1 Generalized anxiety disorder; G89.4 Chronic pain syndrome; J44.9 Chronic obstructive pulmonary disease, unspecified

== ENCOUNTER 2021-03-11 09:11 | Emergency (ER) | payer OTHER, MEDICAID ==
[~2021-03-11] VITALS: Ht 157.4 cm; Wt 62.6 kg
[2021-03-11 09:28] VITALS: BP 128/96
[2021-03-11 09:46] LABS: BASO % 0.4 % (0.0-1.0); EOS # 0.1 10*3/uL (0.0-0.4); EOS % 0.6 % (1.0-4.0); HEMATOCRIT 45.7 % (37.0-47.0); LYMPH # 1.4 10*3/uL (1.3-4.4); LYMPH % 17.1 % (27.0-41.0); MEAN CELL VOLUME 86.1 fl (81.0-99.0); MEAN CORPUSCULAR HGB 27.7 pg (27.0-31.0); MEAN CORPUSCULAR HGB CONC 32.2 g/dl (33.0-37.0); MEAN PLATELET VOLUME 9.5 fl (9.6-12.3); MONO # 0.6 10*3/uL (0.1-1.0); MONO % 7.8 % (3.0-9.0); NEUT # 6.1 10*3/uL (2.3-7.9); NEUT % 73.6 % (47.0-73.0); PLATELET COUNT AUTOMATED 368 10*3/uL (130-400); RED BLOOD COUNT 5.31 10*6/uL (4.10-5.10); RED CELL DISTRI WIDTH 14.4 % (0-14.5); WHITE BLOOD COUNT 8.2 10*3/uL (4.8-10.8)
[2021-03-11 10:07] LABS: ALBUMIN 3.8 gm/dl (3.1-4.5); CREATININE 1.24 mg/dL (0.55-1.02); POTASSIUM 4.1 mmol/L (3.5-5.1)
[2021-03-11] MEDS ORDERED: CARAFATE1 G1 PO (11:05)
[2021-03-11] MEDS ORDERED: OMEPRAZOLE40 MG PO (11:05)
== END 2021-03-11 11:29 | disposition home or self-care (01) ==
LOC: ED 09:11
PROVIDERS: Student in an Organized Health Care Education/Training Program
DX: K29.50 Unspecified chronic gastritis without bleeding (principal); F17.200 Nicotine dependence, unspecified, uncomplicated; Z88.8 Allergy status to other drugs, medicaments and biological substances; Z79.899 Other long term (current) drug therapy

== ENCOUNTER 2021-03-17 11:57 | Emergency (ER) | payer OTHER, MEDICAID ==
[~2021-03-17] VITALS: Wt 68.0 kg
[2021-03-17 12:15] VITALS: BP 130/84
== END 2021-03-17 12:45 | disposition home or self-care (01) ==
LOC: ED 11:57
DX: S01.311A Laceration without foreign body of right ear, initial encounter (principal); Z79.899 Other long term (current) drug therapy; W18.39XA Other fall on same level, initial encounter; Y93.89 Activity, other specified; Y92.89 Other specified places as the place of occurrence of the external cause; Y99.8 Other external cause status

== ENCOUNTER 2021-05-18 05:45 | Emergency (ER) | payer OTHER, MEDICAID ==
[~2021-05-18] VITALS: Ht 157.4 cm; Wt 66.7 kg
[2021-05-18 05:51] VITALS: BP 126/77
[2021-05-18 08:28] LABS: BASO # 0.1 10*3/uL (0.0-0.1); BASO % 0.6 % (0.0-1.0); EOS # 0.2 10*3/uL (0.0-0.4); EOS % 1.9 % (1.0-4.0); HEMATOCRIT 41.8 % (37.0-47.0); LYMPH # 1.8 10*3/uL (1.3-4.4); LYMPH % 21.8 % (27.0-41.0); MEAN CELL VOLUME 86.4 fl (81.0-99.0); MEAN CORPUSCULAR HGB 28.1 pg (27.0-31.0); MEAN CORPUSCULAR HGB CONC 32.5 g/dl (33.0-37.0); MEAN PLATELET VOLUME 9.5 fl (9.6-12.3); MONO # 0.6 10*3/uL (0.1-1.0); NEUT # 5.7 10*3/uL (2.3-7.9); NEUT % 68.2 % (47.0-73.0); PLATELET COUNT AUTOMATED 311 10*3/uL (130-400); RED BLOOD COUNT 4.84 10*6/uL (4.10-5.10); RED CELL DISTRI WIDTH 14.2 % (0-14.5); WHITE BLOOD COUNT 8.3 10*3/uL (4.8-10.8)
[2021-05-18 08:40] LABS: ACT PARTIAL THROMBO TIME 28.1 SECONDS (20.0-32.1); INTERNATIONAL NORM RATIO 0.9 (2.0-3.5)
[2021-05-18 08:47] LABS: ALBUMIN 3.3 gm/dl (3.1-4.5); ALKALINE PHOSPHATASE 135 U/L (45-117); BUN 9 mg/dl (7-24); CHLORIDE 108 mmol/L (98-107); CREATININE 1.06 mg/dL (0.55-1.02); LIPASE 149 U/L (73-393); POTASSIUM 3.5 mmol/L (3.5-5.1); SGOT/AST 13 IU/L (3-35); SGPT/ALT 20 U/L (12-78); SODIUM 140 mmol/L (136-145); TOTAL PROTEIN 7.1 gm/dL (6.4-8.2)
== END 2021-05-18 10:56 | disposition home or self-care (01) ==
LOC: ED 05:45
PROVIDERS: Emergency Medicine
DX: R10.11 Right upper quadrant pain (principal); K21.9 Gastro-esophageal reflux disease without esophagitis; J45.909 Unspecified asthma, uncomplicated; F17.200 Nicotine dependence, unspecified, uncomplicated; Z88.8 Allergy status to other drugs, medicaments and biological substances; Z79.899 Other long term (current) drug therapy; Z98.890 Other specified postprocedural states

== ENCOUNTER 2021-06-04 13:03 | Emergency (ER) | payer OTHER, MEDICAID ==
[~2021-06-04] VITALS: Wt 64.4 kg
[2021-06-04 13:17] VITALS: BP 134/73
== END 2021-06-04 17:25 | disposition left against medical advice (07) ==
LOC: ED 13:03
DX: R10.11 Right upper quadrant pain (principal); Z88.8 Allergy status to other drugs, medicaments and biological substances; Z79.899 Other long term (current) drug therapy; Z98.890 Other specified postprocedural states; Z87.891 Personal history of nicotine dependence

== ENCOUNTER 2021-07-31 12:28 | Inpatient (IN) | payer OTHER, MEDICAID ==
[~2021-07-31] VITALS: Ht 157.4 cm; Wt 61.0 kg
[~2021-07-31 12:28] MED LIST changes: -TRINTELLIX10 MG PEG; +TRINTELLIX10 MG PO
[2021-07-31 12:35] VITALS: BP 155/65
[2021-07-31 13:30] LABS: BASO % 0.3 % (0.0-1.0); EOS # 0.1 10*3/uL (0.0-0.4); EOS % 1.3 % (1.0-4.0); HEMATOCRIT 35.8 % (37.0-47.0); LYMPH # 1.1 10*3/uL (1.3-4.4); LYMPH % 12.3 % (27.0-41.0); MEAN CELL VOLUME 84.8 fl (81.0-99.0); MEAN CORPUSCULAR HGB 28.4 pg (27.0-31.0); MEAN CORPUSCULAR HGB CONC 33.5 g/dl (33.0-37.0); MEAN PLATELET VOLUME 10.3 fl (9.6-12.3); MONO # 0.5 10*3/uL (0.1-1.0); MONO % 5.7 % (3.0-9.0); NEUT # 7.1 10*3/uL (2.3-7.9); NEUT % 80.2 % (47.0-73.0); PLATELET COUNT AUTOMATED 310 10*3/uL (130-400); RED BLOOD COUNT 4.22 10*6/uL (4.10-5.10); RED CELL DISTRI WIDTH 14.3 % (0-14.5); WHITE BLOOD COUNT 8.8 10*3/uL (4.8-10.8)
[2021-07-31 13:50] LABS: ALKALINE PHOSPHATASE 111 U/L (45-117); BUN 13 mg/dl (7-24); CHLORIDE 112 mmol/L (98-107); CREATININE 1.05 mg/dL (0.55-1.02); POTASSIUM 3.8 mmol/L (3.5-5.1); SGOT/AST 55 IU/L (3-35); SGPT/ALT 25 U/L (12-78); SODIUM 142 mmol/L (136-145); TOTAL PROTEIN 6.8 gm/dL (6.4-8.2)
[2021-07-31 15:05] VITALS: BP 120/52
[2021-07-31] MEDS ORDERED: CHLORPROMAZINE10 M1 PO (16:06)
[2021-07-31] MEDS ORDERED: VITAMIN D3125 MC1 PEG (16:07)
[2021-07-31] MEDS ORDERED: FLUPHENAZINE HYD PO (16:07)
[2021-07-31 20:00] VITALS: BP 133/97
[2021-08-01] VITALS (7 sets, daily range): BP systolic 131–161; BP diastolic 53–84
[2021-08-02] VITALS: BP 148/69
[2021-08-02 08:00] VITALS: BP 138/70
[2021-08-02 12:00] VITALS: BP 149/82
[2021-08-02] MEDS ORDERED: SILVADENE,SSD C50 GM T (12:30)
[2021-08-02] MEDS ORDERED: [UNRECOGNIZED DRUG - OTHER] T (12:30)
[2021-08-02 16:00] VITALS: BP 154/90
[2021-08-03] VITALS: BP 159/74
[2021-08-03 08:00] VITALS: BP 158/81
[2021-08-03 16:00] VITALS: BP 155/65
[2021-08-04] VITALS: BP 157/70
[2021-08-04 08:00] VITALS: BP 115/91
[2021-08-04 12:00] VITALS: BP 155/81
[2021-08-04 16:00] VITALS: BP 142/63; BP 154/80
[2021-08-05] VITALS: BP 166/81
[2021-08-05 08:00] VITALS: BP 158/80
[2021-08-05 08:48] LABS: BASO % 0.6 % (0.0-1.0); EOS # 0.1 10*3/uL (0.0-0.4); EOS % 1.4 % (1.0-4.0); HEMATOCRIT 37.6 % (37.0-47.0); LYMPH % 28.1 % (27.0-41.0); MEAN CELL VOLUME 82.8 fl (81.0-99.0); MEAN CORPUSCULAR HGB 27.8 pg (27.0-31.0); MEAN CORPUSCULAR HGB CONC 33.5 g/dl (33.0-37.0); MEAN PLATELET VOLUME 8.9 fl (9.6-12.3); MONO # 0.5 10*3/uL (0.1-1.0); MONO % 6.5 % (3.0-9.0); NEUT # 4.4 10*3/uL (2.3-7.9); PLATELET COUNT AUTOMATED 389 10*3/uL (130-400); RED BLOOD COUNT 4.54 10*6/uL (4.10-5.10)
[2021-08-05 09:02] LABS: BUN 13 mg/dl (7-24); CHLORIDE 111 mmol/L (98-107); CREATININE 0.75 mg/dL (0.55-1.02); POTASSIUM 3.5 mmol/L (3.5-5.1); SODIUM 142 mmol/L (136-145)
== END 2021-08-05 11:03 | DRG 935 ==
LOC: ED 12:28 → 4E 13:03 → EDHOLD 13:03 → 4E 14:04
PROVIDERS: Internal Medicine; Physician Assistant; ADMIT Internal Medicine; ATTEND Internal Medicine
PROC: 0HD9XZZ Extraction of Perineum Skin, External Approach (ICD-10-PCS; principal; 2021-08-01)
DX: T21.27XA Burn of second degree of female genital region, initial encounter (principal); F11.20 Opioid dependence, uncomplicated; E44.1 Mild protein-calorie malnutrition; J43.2 Centrilobular emphysema; Z20.822 Contact with and (suspected) exposure to COVID-19; R62.7 Adult failure to thrive; F31.9 Bipolar disorder, unspecified; F41.1 Generalized anxiety disorder; X08.8XXA Exposure to other specified smoke, fire and flames, initial encounter; T21.25XA Burn of second degree of buttock, initial encounter; T24.219A Burn of second degree of unspecified thigh, initial encounter; R26.2 Difficulty in walking, not elsewhere classified; I10 Essential (primary) hypertension; F17.210 Nicotine dependence, cigarettes, uncomplicated; Z90.5 Acquired absence of kidney; Z88.8 Allergy status to other drugs, medicaments and biological substances; Z79.899 Other long term (current) drug therapy; Y93.89 Activity, other specified; Y92.89 Other specified places as the place of occurrence of the external cause; Y99.8 Other external cause status

== ENCOUNTER → 2021-08-21 | Outpatient (CLI) | payer OTHER, MEDICAID ==
[~2021-08-21] MED LIST changes: +CHLORPROMAZINE10 M1 PO; +FLUPHENAZINE HYD PO; +SILVADENE,SSD C50 GM T; +VITAMIN D3125 MC1 PEG; +[UNRECOGNIZED DRUG - OTHER] T
== END | disposition home or self-care (01) ==
LOC: WOUNDCARE 00:24
PROVIDERS: ATTEND Surgery
DX: T24.331A Burn of third degree of right lower leg, initial encounter (principal); T24.332A Burn of third degree of left lower leg, initial encounter; T21.37XA Burn of third degree of female genital region, initial encounter; T24.312A Burn of third degree of left thigh, initial encounter; T24.212A Burn of second degree of left thigh, initial encounter; T31.0 Burns involving less than 10% of body surface; I10 Essential (primary) hypertension; J44.9 Chronic obstructive pulmonary disease, unspecified; F17.200 Nicotine dependence, unspecified, uncomplicated; F31.9 Bipolar disorder, unspecified; F41.9 Anxiety disorder, unspecified; F11.20 Opioid dependence, uncomplicated; X10.0XXA Contact with hot drinks, initial encounter; Y93.89 Activity, other specified; Y92.89 Other specified places as the place of occurrence of the external cause; Y99.8 Other external cause status

== ENCOUNTER → 2021-09-05 | Outpatient (CLI) | payer OTHER | LOC: WOUNDCARE 00:47 | PROVIDERS: ATTEND Nurse Practitioner Family | DX: T21.3 Burn of third degree of trunk (principal); T31.0 Burns involving less than 10% of body surface; I10 Essential (primary) hypertension; J44.9 Chronic obstructive pulmonary disease, unspecified; F17.200 Nicotine dependence, unspecified, uncomplicated; F31.9 Bipolar disorder, unspecified; F12.90 Cannabis use, unspecified, uncomplicated; F41.9 Anxiety disorder, unspecified; X08.8XXD Exposure to other specified smoke, fire and flames, subsequent encounter ==

== ENCOUNTER → 2021-09-13 | Outpatient (CLI) | payer OTHER | LOC: WOUNDCARE 01:37 | PROVIDERS: ATTEND Nurse Practitioner Family | DX: T21.3 Burn of third degree of trunk (principal); T24.231D Burn of second degree of right lower leg, subsequent encounter; T24.232D Burn of second degree of left lower leg, subsequent encounter; T31.0 Burns involving less than 10% of body surface; I10 Essential (primary) hypertension; J44.9 Chronic obstructive pulmonary disease, unspecified; F17.200 Nicotine dependence, unspecified, uncomplicated; F31.9 Bipolar disorder, unspecified; F41.9 Anxiety disorder, unspecified; F11.20 Opioid dependence, uncomplicated; X08.8XXD Exposure to other specified smoke, fire and flames, subsequent encounter ==

== ENCOUNTER → 2021-09-20 | Outpatient (CLI) | payer OTHER | END | disposition home or self-care (01) | LOC: WOUNDCARE 03:09 | PROVIDERS: ATTEND Nurse Practitioner Family | DX: T21.3 Burn of third degree of trunk (principal); T24.231D Burn of second degree of right lower leg, subsequent encounter; T24.232D Burn of second degree of left lower leg, subsequent encounter; T31.0 Burns involving less than 10% of body surface; B37.9 Candidiasis, unspecified; I10 Essential (primary) hypertension; J44.9 Chronic obstructive pulmonary disease, unspecified; F17.200 Nicotine dependence, unspecified, uncomplicated; F31.9 Bipolar disorder, unspecified; F41.9 Anxiety disorder, unspecified; F11.20 Opioid dependence, uncomplicated; X08.8XXD Exposure to other specified smoke, fire and flames, subsequent encounter ==

== ENCOUNTER 2021-10-16 10:36 | Emergency (ER) | payer OTHER ==
[2021-10-16 10:46] VITALS: BP 167/94
[2021-10-16] MEDS ORDERED: VOLTAREN ARTHRI20 GM T (12:38)
== END 2021-10-16 13:29 | disposition home or self-care (01) ==
LOC: ED 10:36
DX: M70.21 Olecranon bursitis, right elbow (principal); J44.9 Chronic obstructive pulmonary disease, unspecified; K21.9 Gastro-esophageal reflux disease without esophagitis; E78.00 Pure hypercholesterolemia, unspecified; F17.200 Nicotine dependence, unspecified, uncomplicated; Z98.890 Other specified postprocedural states; Z79.899 Other long term (current) drug therapy; Y93.89 Activity, other specified

== ENCOUNTER → 2021-10-19 | Outpatient (CLI) | payer OTHER ==
[~2021-10-19] MED LIST changes: +VOLTAREN ARTHRI20 GM T
== END | disposition home or self-care (01) ==
LOC: LAB 10-18 01:09
PROVIDERS: ATTEND Specialist
DX: L93.0 Discoid lupus erythematosus (principal)

== ENCOUNTER 2021-12-24 14:24 | Emergency (ER) | payer OTHER ==
[~2021-12-24] VITALS: Ht 157.4 cm; Wt 63.0 kg
[2021-12-24 14:28] VITALS: BP 144/90
== END 2021-12-24 18:45 | disposition left against medical advice (07) ==
LOC: ED 14:24
DX: J02.9 Acute pharyngitis, unspecified (principal); Z53.21 Procedure and treatment not carried out due to patient leaving prior to being seen by health care provider

== ENCOUNTER → 2022-02-15 | Outpatient (CLI) | payer OTHER | END | disposition home or self-care (01) | LOC: LAB 02-08 14:01 | PROVIDERS: ATTEND Student in an Organized Health Care Education/Training Program | DX: R74.8 Abnormal levels of other serum enzymes (principal) ==

== ENCOUNTER 2022-02-28 07:31 | Emergency (ER) | payer OTHER ==
[~2022-02-28] VITALS: Ht 157.4 cm; Wt 61.2 kg
[2022-02-28 07:32] VITALS: BP 141/98
[2022-02-28 08:07] LABS: BASO % 0.4 % (0.0-1.0); EOS # 0.1 10*3/uL (0.0-0.4); HEMATOCRIT 38.4 % (37.0-47.0); LYMPH # 1.1 10*3/uL (1.3-4.4); LYMPH % 22.4 % (27.0-41.0); MEAN CELL VOLUME 83.7 fl (81.0-99.0); MEAN CORPUSCULAR HGB 28.1 pg (27.0-31.0); MEAN CORPUSCULAR HGB CONC 33.6 g/dl (33.0-37.0); MONO # 0.4 10*3/uL (0.1-1.0); MONO % 7.4 % (3.0-9.0); NEUT # 3.4 10*3/uL (2.3-7.9); NEUT % 68.6 % (47.0-73.0); PLATELET COUNT AUTOMATED 213 10*3/uL (130-400); RED BLOOD COUNT 4.59 10*6/uL (4.10-5.10); RED CELL DISTRI WIDTH 14.1 % (0-14.5)
[2022-02-28 08:22] LABS: ALKALINE PHOSPHATASE 137 U/L (45-117); BUN 12 mg/dl (7-24); CHLORIDE 111 mmol/L (98-107); CREATININE 0.97 mg/dL (0.55-1.02); POTASSIUM 3.7 mmol/L (3.5-5.1); SGOT/AST 22 IU/L (3-35); SGPT/ALT 34 U/L (12-78); SODIUM 140 mmol/L (136-145); TOTAL PROTEIN 7.1 gm/dL (6.4-8.2)
[2022-02-28 09:59] LABS: URINE AMPHETAMINES > 1000 (1000ng/ml); URINE BARBITURATES < 200 (200ng/ml); URINE BENZODIAZEPINES > 200 (200ng/ml); URINE CANNABINOIDS (THC) > 50 (50ng/ml); URINE COCAINE < 300 (300ng/ml); URINE METHADONE < 300 (300ng/ml); URINE OPIATES < 300 (300ng/ml)
[2022-02-28 10:03] LABS: URINE PHENCYCLIDINE < 25 (25ng/ml)
== END 2022-02-28 10:33 | disposition home or self-care (01) ==
LOC: ED 07:31
PROVIDERS: Internal Medicine
DX: R53.1 Weakness (principal); F19.10 Other psychoactive substance abuse, uncomplicated; F17.200 Nicotine dependence, unspecified, uncomplicated; Z98.890 Other specified postprocedural states; Z79.899 Other long term (current) drug therapy; Z88.8 Allergy status to other drugs, medicaments and biological substances

== ENCOUNTER → 2022-05-20 | Outpatient (CLI) | payer OTHER | END | disposition home or self-care (01) | LOC: RAD 08:54 | PROVIDERS: ATTEND Nurse Practitioner Family | DX: S49.91XA Unspecified injury of right shoulder and upper arm, initial encounter (principal); X58.XXXA Exposure to other specified factors, initial encounter; Y93.89 Activity, other specified; Y92.89 Other specified places as the place of occurrence of the external cause; Y99.8 Other external cause status ==

== ENCOUNTER → 2022-08-09 | Outpatient (CLI) | payer OTHER | END | disposition home or self-care (01) | LOC: ORTHO 00:08 | PROVIDERS: ATTEND Orthopaedic Surgery | DX: M25.752 Osteophyte, left hip (principal); M25.552 Pain in left hip ==

== ENCOUNTER → 2022-09-27 | Outpatient (CLI) | payer MEDICARE, OTHER | END | disposition home or self-care (01) | LOC: ORTHO 02:07 | PROVIDERS: ATTEND Orthopaedic Surgery | DX: M25.521 Pain in right elbow (principal) ==

== ENCOUNTER 2022-10-28 11:41 | Emergency (ER) | payer OTHER ==
[~2022-10-28] VITALS: Ht 157.4 cm; Wt 62.1 kg
[2022-10-28 11:53] VITALS: BP 130/92
== END 2022-10-28 13:32 | disposition home or self-care (01) ==
LOC: ED 11:41
DX: T22.20XA Burn of second degree of shoulder and upper limb, except wrist and hand, unspecified site, initial encounter (principal); F41.9 Anxiety disorder, unspecified; K21.9 Gastro-esophageal reflux disease without esophagitis; J45.909 Unspecified asthma, uncomplicated; F31.9 Bipolar disorder, unspecified; T31.0 Burns involving less than 10% of body surface; X08.8XXA Exposure to other specified smoke, fire and flames, initial encounter; Y93.89 Activity, other specified; Y92.89 Other specified places as the place of occurrence of the external cause; Y99.8 Other external cause status

== ENCOUNTER 2023-01-26 05:50 | Emergency (ER) | payer OTHER ==
[~2023-01-26] VITALS: Ht 157.4 cm
[2023-01-26 05:57] VITALS: BP 141/90
[2023-01-26] MEDS ORDERED: TYLENOL EXTRA500 MG PO (07:46)
[2023-01-26] MEDS ORDERED: VARENICLINE TART1 MG PO (07:49)
== END 2023-01-26 08:01 | disposition home or self-care (01) ==
LOC: ED 05:50
DX: R07.81 Pleurodynia (principal); F32.A Depression, unspecified; F41.9 Anxiety disorder, unspecified; K21.9 Gastro-esophageal reflux disease without esophagitis; J45.909 Unspecified asthma, uncomplicated; Z88.8 Allergy status to other drugs, medicaments and biological substances; Z98.890 Other specified postprocedural states; F17.290 Nicotine dependence, other tobacco product, uncomplicated

== ENCOUNTER 2023-01-28 14:17 | Emergency (ER) | payer OTHER ==
[~2023-01-28] VITALS: Ht 157.4 cm; Wt 65.8 kg
[~2023-01-28 14:17] MED LIST changes: +TYLENOL EXTRA500 MG PO; +VARENICLINE TART1 MG PO
[2023-01-28] MEDS ORDERED: PERCOCET 5-3251 EACH PO (17:08)
[2023-01-28 17:16] VITALS: BP 136/57
== END 2023-01-28 17:23 | disposition left against medical advice (07) ==
LOC: ED 14:17
DX: S22.42XA Multiple fractures of ribs, left side, initial encounter for closed fracture (principal); J44.9 Chronic obstructive pulmonary disease, unspecified; F19.10 Other psychoactive substance abuse, uncomplicated; F41.9 Anxiety disorder, unspecified; F31.9 Bipolar disorder, unspecified; K21.9 Gastro-esophageal reflux disease without esophagitis; Z88.8 Allergy status to other drugs, medicaments and biological substances; Z98.890 Other specified postprocedural states; F17.200 Nicotine dependence, unspecified, uncomplicated; W19.XXXA Unspecified fall, initial encounter; Y93.89 Activity, other specified; Y92.009 Unspecified place in unspecified non-institutional (private) residence as the place of occurrence of the external cause; Y99.8 Other external cause status

== ENCOUNTER 2023-03-14 14:20 | Emergency (ER) | payer OTHER ==
[~2023-03-14] VITALS: Ht 157.4 cm; Wt 64.4 kg
[~2023-03-14 14:20] MED LIST changes: +PERCOCET 5-3251 EACH PO; +ROPINIROLE HYDRO3 MG PO; +THORAZINE25 MG PO
[2023-03-14 14:25] VITALS: BP 131/73
[2023-03-14 14:44] LABS: BILIRUBIN Negative (Negative); BLOOD Negative (Negative); CLARITY Clear (Clear); COLOR Yellow (Yellow); GLUCOSE Negative (Negative); KETONE Negative (Negative); LEUKO ESTERASE Trace (Negative); NITRITE Negative (Negative); UROBILINOGEN 0.2 E.U./dl (0.0-1.0)
[2023-03-14 15:00] LABS: BACTERIA 2+
[2023-03-14 15:00] LABS: BASO % 0.6 % (0.0-1.0); EOS # 0.1 10*3/uL (0.0-0.4); EOS % 1.7 % (1.0-4.0); HEMATOCRIT 36.1 % (37.0-47.0); LYMPH # 1.3 10*3/uL (1.3-4.4); LYMPH % 19.5 % (27.0-41.0); MEAN CORPUSCULAR HGB 27.4 pg (27.0-31.0); MEAN PLATELET VOLUME 9.1 fl (9.6-12.3); MONO # 0.4 10*3/uL (0.1-1.0); MONO % 6.2 % (3.0-9.0); NEUT # 4.6 10*3/uL (2.3-7.9); NEUT % 71.5 % (47.0-73.0); PLATELET COUNT AUTOMATED 199 10*3/uL (130-400); RED BLOOD COUNT 4.35 10*6/uL (4.10-5.10); RED CELL DISTRI WIDTH 15.1 % (0-14.5); WHITE BLOOD COUNT 6.5 10*3/uL (4.8-10.8)
[2023-03-14 15:22] LABS: ALKALINE PHOSPHATASE 124 U/L (46-116); BUN 10 mg/dl (9-23); CHLORIDE 106 mmol/L (98-107); LIPASE 35 U/L (12-53); POTASSIUM 4.3 mmol/L (3.4-5.1); SGPT/ALT 23 U/L (5-49); TOTAL PROTEIN 6.7 gm/dL (6.0-8.0)
[2023-03-14] MEDS ORDERED: CIPRO500 MG PO (17:15)
== END 2023-03-14 17:52 | disposition home or self-care (01) ==
LOC: ED 14:20
PROVIDERS: Internal Medicine
DX: N39.0 Urinary tract infection, site not specified (principal); R53.1 Weakness; R10.2 Pelvic and perineal pain; F32.A Depression, unspecified; F41.9 Anxiety disorder, unspecified; K21.9 Gastro-esophageal reflux disease without esophagitis; J45.909 Unspecified asthma, uncomplicated; Z88.8 Allergy status to other drugs, medicaments and biological substances; Z98.890 Other specified postprocedural states; F17.200 Nicotine dependence, unspecified, uncomplicated; F12.90 Cannabis use, unspecified, uncomplicated

== ENCOUNTER 2023-03-30 10:42 | Emergency (ER) | payer OTHER ==
[~2023-03-30] VITALS: Ht 157.4 cm; Wt 65.8 kg
[2023-03-30 11:03] VITALS: BP 164/80
[2023-03-30] MEDS ORDERED: TRAMADOL HCL50 MG PO (14:05)
== END 2023-03-30 14:12 | disposition home or self-care (01) ==
LOC: ED 10:42
DX: S22.41XA Multiple fractures of ribs, right side, initial encounter for closed fracture (principal); M25.511 Pain in right shoulder; Z88.8 Allergy status to other drugs, medicaments and biological substances; Z98.890 Other specified postprocedural states; F17.210 Nicotine dependence, cigarettes, uncomplicated; F12.90 Cannabis use, unspecified, uncomplicated; W01.0XXA Fall on same level from slipping, tripping and stumbling without subsequent striking against object, initial encounter; Y93.89 Activity, other specified; Y92.009 Unspecified place in unspecified non-institutional (private) residence as the place of occurrence of the external cause; Y99.8 Other external cause status

== ENCOUNTER → 2023-05-05 | Outpatient (CLI) | payer OTHER ==
[~2023-05-05] MED LIST changes: +TRAMADOL HCL50 MG PO
== END | disposition home or self-care (01) ==
LOC: RAD 11:10
PROVIDERS: ATTEND Family Medicine
DX: L30.9 Dermatitis, unspecified (principal); S22.41XS Multiple fractures of ribs, right side, sequela; R07.81 Pleurodynia; X58.XXXS Exposure to other specified factors, sequela

== ENCOUNTER 2023-06-21 10:19 | Emergency (ER) | payer OTHER ==
[~2023-06-21] VITALS: Ht 157.4 cm; Wt 65.8 kg
[2023-06-21 10:25] VITALS: BP 166/85
[2023-06-24] MEDS ORDERED: OMEPRAZOLE40 MG PO (06:39)
[2023-06-24] MEDS ORDERED: TRINTELLIX10 MG PO (06:41)
[2023-06-24] MEDS ORDERED: WAL-FEX ALLERGY60 MG PO (06:42)
[2023-06-24] MEDS ORDERED: CLOBETASOL 0.0560 G1 T (06:47)
[2023-06-24] MEDS ORDERED: KENALOG 0.1% OI15 GM T (06:47)
[2023-06-24] MEDS ORDERED: THORAZINE50 MG PO (06:49)
[2023-06-24] MEDS ORDERED: VARENICLINE TART1 MG PO (06:50)
== END 2023-06-21 12:21 | disposition left against medical advice (07) ==
LOC: ED 10:19
DX: M79.671 Pain in right foot (principal); F31.9 Bipolar disorder, unspecified; F17.200 Nicotine dependence, unspecified, uncomplicated; Z88.8 Allergy status to other drugs, medicaments and biological substances; Z79.899 Other long term (current) drug therapy; Z98.890 Other specified postprocedural states; Z90.721 Acquired absence of ovaries, unilateral; Z53.29 Procedure and treatment not carried out because of patient's decision for other reasons

== ENCOUNTER 2023-06-28 00:14 | Emergency (ER) | payer OTHER ==
[~2023-06-28] VITALS: Ht 157.4 cm; Wt 64.0 kg
[~2023-06-28 00:14] MED LIST changes: +CLOBETASOL 0.0560 G1 T; +KENALOG 0.1% OI15 GM T; +THORAZINE50 MG PO; +WAL-FEX ALLERGY60 MG PO
[2023-06-28 00:19] VITALS: BP 125/80
[2023-06-28 00:43] LABS: BASO % 0.3 % (0.0-1.0); EOS # 0.1 10*3/uL (0.0-0.4); EOS % 1.3 % (1.0-4.0); LYMPH # 1.5 10*3/uL (1.3-4.4); MEAN CELL VOLUME 84.2 fl (81.0-99.0); MEAN CORPUSCULAR HGB CONC 32.1 g/dl (33.0-37.0); MEAN PLATELET VOLUME 9.1 fl (9.6-12.3); MONO # 0.6 10*3/uL (0.1-1.0); MONO % 9.3 % (3.0-9.0); NEUT # 3.8 10*3/uL (2.3-7.9); NEUT % 63.9 % (47.0-73.0); PLATELET COUNT AUTOMATED 221 10*3/uL (130-400); RED BLOOD COUNT 4.63 10*6/uL (4.10-5.10); RED CELL DISTRI WIDTH 13.9 % (0-14.5)
[2023-06-28 01:00] LABS: BUN 16 mg/dl (9-23); CHLORIDE 106 mmol/L (98-107); POTASSIUM 3.7 mmol/L (3.4-5.1)
[2023-06-28] MEDS ORDERED: CYCLOBENZAPRINE5 M3 PO (01:16)
[2023-06-28] MEDS ORDERED: MUCINEX ER600 MG PO (01:29)
== END 2023-06-28 01:54 | disposition home or self-care (01) ==
LOC: ED 00:14
PROVIDERS: Internal Medicine
DX: M25.551 Pain in right hip (principal); F41.9 Anxiety disorder, unspecified; K21.9 Gastro-esophageal reflux disease without esophagitis; J45.909 Unspecified asthma, uncomplicated; F31.9 Bipolar disorder, unspecified; F12.90 Cannabis use, unspecified, uncomplicated; F17.210 Nicotine dependence, cigarettes, uncomplicated; Z88.8 Allergy status to other drugs, medicaments and biological substances; Z98.890 Other specified postprocedural states

== ENCOUNTER 2023-09-25 14:30 | Inpatient (IN) | payer OTHER ==
[~2023-09-25] VITALS: Ht 157.5 cm; Wt 58.6 kg
[2023-09-25 14:30] VITALS: BP 165/81
[~2023-09-25 14:30] MED LIST changes: +MUCINEX ER600 MG PO
[2023-09-25] MEDS ORDERED: ACETAMINOPHEN 500 MG TAB PO ONE (16:20)
[2023-09-25 16:50] LABS: BASO % 0.5 % (0.0-1.0); EOS # 0.1 10*3/uL (0.0-0.4); EOS % 1.1 % (1.0-4.0); LYMPH # 0.9 10*3/uL (1.3-4.4); LYMPH % 14.1 % (27.0-41.0); MEAN CELL VOLUME 84.9 fl (81.0-99.0); MEAN CORPUSCULAR HGB 27.8 pg (27.0-31.0); MEAN CORPUSCULAR HGB CONC 32.7 g/dl (33.0-37.0); MEAN PLATELET VOLUME 9.2 fl (9.6-12.3); MONO # 0.4 10*3/uL (0.1-1.0); MONO % 6.4 % (3.0-9.0); NEUT % 77.4 % (47.0-73.0); PLATELET COUNT AUTOMATED 243 10*3/uL (130-400); RED BLOOD COUNT 4.36 10*6/uL (4.10-5.10); RED CELL DISTRI WIDTH 16.1 % (0-14.5); WHITE BLOOD COUNT 6.5 10*3/uL (4.8-10.8)
[2023-09-25 17:11] LABS: ALKALINE PHOSPHATASE 144 U/L (46-116); BUN 8 mg/dl (9-23); CHLORIDE 106 mmol/L (98-107); POTASSIUM 3.8 mmol/L (3.4-5.1); SGPT/ALT 36 U/L (5-49); TOTAL PROTEIN 7.1 gm/dL (6.0-8.0)
[2023-09-25] MEDS ORDERED: LIDOCAINE 1 EA PATCH T SCH (17:40)
[2023-09-25 17:54] LABS: ACT PARTIAL THROMBO TIME 28.4 SECONDS (20.0-32.1)
[2023-09-25] MEDS ORDERED: Acetaminophen/Hydrocodone 5 MG/325 MG TABLET PO PRN (18:10)
[2023-09-25] MEDS ORDERED: BISACODYL 5 MG TAB PO PRN (18:10)
[2023-09-25] MEDS ORDERED: MORPHINE Sulfate 2 MG/ML SYR IV PRN (18:10)
[2023-09-25 19:13] LABS: BILIRUBIN Negative (Negative); BLOOD Negative (Negative); CLARITY Turbid (Clear); COLOR Yellow (Yellow); GLUCOSE Negative (Negative); KETONE Negative (Negative); LEUKO ESTERASE 1+ (Negative); NITRITE Positive (Negative); SPECIFIC GRAVITY 1.015 (1.001-1.030); UROBILINOGEN 0.2 E.U./dl (0.0-1.0)
[2023-09-25 19:23] LABS: BACTERIA 3+; WBC 31-40 wbc/hpf (0-5)
[2023-09-25 20:13] VITALS: BP 152/82
[2023-09-26 03:51] VITALS: BP 136/79
[2023-09-26] MEDS ORDERED: OMEPRAZOLE 20 MG CAP PO SCH (06:05)
[2023-09-26 06:53] VITALS: BP 119/73
[2023-09-26 06:58] LABS: BASO % 0.6 % (0.0-1.0); EOS # 0.1 10*3/uL (0.0-0.4); EOS % 2.6 % (1.0-4.0); HEMATOCRIT 37.9 % (37.0-47.0); LYMPH # 0.8 10*3/uL (1.3-4.4); LYMPH % 14.8 % (27.0-41.0); MEAN CELL VOLUME 82.8 fl (81.0-99.0); MEAN CORPUSCULAR HGB 27.7 pg (27.0-31.0); MEAN CORPUSCULAR HGB CONC 33.5 g/dl (33.0-37.0); MEAN PLATELET VOLUME 9.1 fl (9.6-12.3); MONO # 0.4 10*3/uL (0.1-1.0); MONO % 7.5 % (3.0-9.0); NEUT % 74.1 % (47.0-73.0); PLATELET COUNT AUTOMATED 252 10*3/uL (130-400); RED BLOOD COUNT 4.58 10*6/uL (4.10-5.10); RED CELL DISTRI WIDTH 16.5 % (0-14.5); WHITE BLOOD COUNT 5.4 10*3/uL (4.8-10.8)
[2023-09-26] MEDS ORDERED: CLOBETASOL PROP15 G3 T (07:17)
[2023-09-26] MEDS ORDERED: WAL-FEX180 MG PO (07:18)
[2023-09-26] MEDS ORDERED: PIMECROLIMUS30 GM T (07:18)
[2023-09-26] MEDS ORDERED: ARNUITY ELLIPT50 MCG INH (07:19)
[2023-09-26] MEDS ORDERED: LAMOTRIGINE200 MG PO (07:20)
[2023-09-26] MEDS ORDERED: VITAMIN D312.5 MCG/5 PO (07:21)
[2023-09-26] MEDS ORDERED: VRAYLAR6 MG PO (07:21)
[2023-09-26] MEDS ORDERED: THORAZINE50 MG PO (07:21)
[2023-09-26] MEDS ORDERED: VENLAFAXINE150 MG PO (07:21)
[2023-09-26 07:23] VITALS: BP 119/73
[2023-09-26 07:50] LABS: VITAMIN D, 25-HYDROXY 65.9 ng/mL (30-100)
[2023-09-26 07:52] LABS: ALKALINE PHOSPHATASE 152 U/L (46-116); BUN 8 mg/dl (9-23); CHLORIDE 105 mmol/L (98-107); CHOLESTEROL 205 mg/dL (<200); FREE T4 1.11 ng/dl (0.89-1.76); LDL CHOLESTEROL 127 mg/dL (9-159); POTASSIUM 3.7 mmol/L (3.4-5.1); SGPT/ALT 36 U/L (5-49); TOTAL PROTEIN 7.1 gm/dL (6.0-8.0); TRIGLYCERIDES 100 mg/dl (<150)
[2023-09-26] MEDS ORDERED: FOLIC ACID 1 MG TAB PO SCH (10:00)
[2023-09-26] MEDS ORDERED: Ceftriaxone Sodium 1 GM,IV 1 EA in SYRINGE INFUSION 10 ML IV SCH (10:00)
[2023-09-26] MEDS ORDERED: Cholecalciferol 5,000 IU CAP (125 MCG) PO SCH (10:00)
[2023-09-26] MEDS ORDERED: TRIAMCINOLONE ACETONIDE 0.1% OINTMENT 15 GM TUBE T SCH (10:00)
[2023-09-26] MEDS ORDERED: Enoxaparin Sodium 40 MG/0.4 ML SYR SC SCH (10:00)
[2023-09-26 10:02] VITALS: BP 145/84
[2023-09-26] MEDS ORDERED: ALPRAZolam 0.25 MG TAB PO SCH (14:00)
[2023-09-26 16:00] VITALS: BP 145/84
[2023-09-26] MEDS ORDERED: BUDESONIDE 0.5 MG AMP NEB SCH (18:05)
[2023-09-26 20:00] VITALS: BP 132/72
[2023-09-26] MEDS ORDERED: [UNRECOGNIZED DRUG - OTHER] PO SCH (22:00)
[2023-09-26] MEDS ORDERED: Venlafaxine Hydrochloride 75 MG CAP PO SCH (22:00)
[2023-09-26] MEDS ORDERED: LAMOTRIGINE 100 MG TAB PO SCH (22:00)
[2023-09-26] MEDS ORDERED: Ropinirole Hydrochloride 1 MG TAB PO SCH ×2 (22:00)
[2023-09-27] VITALS: BP 126/70
[2023-09-27 03:05] VITALS: BP 107/67
[2023-09-27 06:12] LABS: BASO % 0.4 % (0.0-1.0); EOS # 0.1 10*3/uL (0.0-0.4); EOS % 1.6 % (1.0-4.0); LYMPH % 19.2 % (27.0-41.0); MEAN CELL VOLUME 82.9 fl (81.0-99.0); MEAN CORPUSCULAR HGB 28.3 pg (27.0-31.0); MEAN CORPUSCULAR HGB CONC 34.2 g/dl (33.0-37.0); MEAN PLATELET VOLUME 9.3 fl (9.6-12.3); MONO # 0.4 10*3/uL (0.1-1.0); MONO % 7.4 % (3.0-9.0); NEUT # 3.6 10*3/uL (2.3-7.9); NEUT % 71.2 % (47.0-73.0); PLATELET COUNT AUTOMATED 250 10*3/uL (130-400); RED BLOOD COUNT 4.34 10*6/uL (4.10-5.10); RED CELL DISTRI WIDTH 16.2 % (0-14.5)
[2023-09-27 07:21] LABS: POTASSIUM 3.8 mmol/L (3.4-5.1); TOTAL PROTEIN 6.6 gm/dL (6.0-8.0)
[2023-09-27 08:00] VITALS: BP 110/55
[2023-09-27] MEDS ORDERED: CARIPRAZINE HCL 3 MG CAPSULE PO SCH (10:00)
[2023-09-27] MEDS ORDERED: VORTIOXETINE HYDROBROMIDE 10 MG TAB PO SCH (10:00)
[2023-09-27 12:00] VITALS: BP 136/75
[2023-09-27] MEDS ORDERED: [UNRECOGNIZED DRUG - OTHER] PO SCH ×2 (14:00→18:00)
[2023-09-27 16:00] VITALS: BP 148/73
[2023-09-27 20:00] VITALS: BP 142/72
[2023-09-28] VITALS: BP 140/72
[2023-09-28 06:30] LABS: BASO % 0.9 % (0.0-1.0); EOS # 0.1 10*3/uL (0.0-0.4); HEMATOCRIT 37.4 % (37.0-47.0); LYMPH # 1.2 10*3/uL (1.3-4.4); MEAN CELL VOLUME 85.2 fl (81.0-99.0); MEAN CORPUSCULAR HGB 27.6 pg (27.0-31.0); MEAN CORPUSCULAR HGB CONC 32.4 g/dl (33.0-37.0); MEAN PLATELET VOLUME 9.5 fl (9.6-12.3); MONO # 0.5 10*3/uL (0.1-1.0); MONO % 10.5 % (3.0-9.0); NEUT # 2.4 10*3/uL (2.3-7.9); NEUT % 57.1 % (47.0-73.0); PLATELET COUNT AUTOMATED 268 10*3/uL (130-400); RED BLOOD COUNT 4.39 10*6/uL (4.10-5.10); RED CELL DISTRI WIDTH 16.3 % (0-14.5); WHITE BLOOD COUNT 4.3 10*3/uL (4.8-10.8)
[2023-09-28 07:33] LABS: ALKALINE PHOSPHATASE 146 U/L (46-116); BUN 17 mg/dl (9-23); CHLORIDE 106 mmol/L (98-107); POTASSIUM 3.9 mmol/L (3.4-5.1); SGPT/ALT 29 U/L (5-49); TOTAL PROTEIN 6.5 gm/dL (6.0-8.0)
[2023-09-28 08:00] VITALS: BP 143/81
[2023-09-28] MEDS ORDERED: VITAMIN E 400 IU CAP PO SCH (10:00)
[2023-09-28 12:00] VITALS: BP 155/82
[2023-09-28 16:00] VITALS: BP 151/99
[2023-09-28 20:00] VITALS: BP 156/71
[2023-09-29 00:27] VITALS: BP 146/70
[2023-09-29 08:00] VITALS: BP 153/82
[2023-09-29 12:00] VITALS: BP 147/75
[2023-09-29 16:00] VITALS: BP 148/73
[2023-09-29 20:29] VITALS: BP 156/74
[2023-09-30 00:23] VITALS: BP 155/69
[2023-09-30 08:00] VITALS: BP 158/67
[2023-09-30 12:00] VITALS: BP 161/74
[2023-09-30 16:00] VITALS: BP 175/72
[2023-09-30] MEDS ORDERED: CEFDINIR 300 MG CAP PO SCH (18:00)
[2023-09-30 20:00] VITALS: BP 101/62; BP 157/80
[2023-10-01] VITALS: BP 142/70
[2023-10-01 09:38] VITALS: BP 102/82
[2023-10-01] MEDS ORDERED: CEFDINIR300 MG PO (12:56)
[2023-10-01] MEDS ORDERED: VITAMIN E180 M1 PO (12:56)
[2023-10-01] MEDS ORDERED: FLUPHENAZINE HYD PO (12:56)
[2023-10-01] MEDS ORDERED: HYDROCODONE-AC1 EAC1 PO (13:01)
== END 2023-10-01 13:06 | disposition home or self-care (01) | DRG 205 ==
LOC: ED 14:30 → EDHOLD 18:01 → 4E 09-26 12:46
PROVIDERS: Emergency Medicine; Family Medicine; Student in an Organized Health Care Education/Training Program; ADMIT Internal Medicine; ATTEND Internal Medicine
DX: S22.31XA Fracture of one rib, right side, initial encounter for closed fracture (principal); N17.0 Acute kidney failure with tubular necrosis; F31.60 Bipolar disorder, current episode mixed, unspecified; N39.0 Urinary tract infection, site not specified; X58.XXXA Exposure to other specified factors, initial encounter; J44.9 Chronic obstructive pulmonary disease, unspecified; W18.39XA Other fall on same level, initial encounter; K21.9 Gastro-esophageal reflux disease without esophagitis; R74.01 Elevation of levels of liver transaminase levels; G24.01 Drug induced subacute dyskinesia; Z88.8 Allergy status to other drugs, medicaments and biological substances; Z79.899 Other long term (current) drug therapy; Y93.89 Activity, other specified; Y92.89 Other specified places as the place of occurrence of the external cause; Y99.8 Other external cause status

== ENCOUNTER 2023-10-08 14:43 | Emergency (ER) | payer OTHER ==
[~2023-10-08] VITALS: Ht 157.4 cm; Wt 63.5 kg
[~2023-10-08 14:43] MED LIST changes: +ARNUITY ELLIPT50 MCG INH; +CEFDINIR300 MG PO; +CLOBETASOL PROP15 G3 T; +HYDROCODONE-AC1 EAC1 PO; +LAMOTRIGINE200 MG PO; +PIMECROLIMUS30 GM T; +VENLAFAXINE150 MG PO; +VITAMIN D312.5 MCG/5 PO; +VITAMIN E180 M1 PO; +VRAYLAR6 MG PO; +WAL-FEX180 MG PO
[2023-10-08 14:54] VITALS: BP 165/92
[2023-10-08 15:20] LABS: BASO # 0.1 10*3/uL (0.0-0.1); BASO % 0.5 % (0.0-1.0); EOS % 0.4 % (1.0-4.0); HEMATOCRIT 39.4 % (37.0-47.0); LYMPH # 1.4 10*3/uL (1.3-4.4); LYMPH % 13.5 % (27.0-41.0); MEAN CELL VOLUME 85.7 fl (81.0-99.0); MEAN CORPUSCULAR HGB 27.8 pg (27.0-31.0); MEAN CORPUSCULAR HGB CONC 32.5 g/dl (33.0-37.0); MEAN PLATELET VOLUME 8.8 fl (9.6-12.3); MONO # 0.8 10*3/uL (0.1-1.0); MONO % 7.5 % (3.0-9.0); NEUT # 8.1 10*3/uL (2.3-7.9); NEUT % 77.7 % (47.0-73.0); PLATELET COUNT AUTOMATED 319 10*3/uL (130-400); RED CELL DISTRI WIDTH 15.5 % (0-14.5); WHITE BLOOD COUNT 10.4 10*3/uL (4.8-10.8)
[2023-10-08] MEDS ORDERED: hydrOXYzine pamoate 25 MG CAP PO ONE (15:30)
[2023-10-08 15:40] LABS: BUN 13 mg/dl (9-23); CHLORIDE 104 mmol/L (98-107); POTASSIUM 3.8 mmol/L (3.4-5.1)
[2023-10-08 15:42] LABS: ETHYL ALCOHOL < 3.0 mg/dl (<3)
[2023-10-08 15:52] LABS: BILIRUBIN Negative (Negative); BLOOD Negative (Negative); CLARITY Cloudy (Clear); COLOR Yellow (Yellow); GLUCOSE Negative (Negative); KETONE Negative (Negative); LEUKO ESTERASE 1+ (Negative); NITRITE Negative (Negative); PH 6.5 (4.5-8.0)
[2023-10-08 16:06] LABS: URINE AMPHETAMINES Positive (1000ng/ml); URINE BARBITURATES Negative (200ng/ml); URINE BENZODIAZEPINES Negative (200ng/ml); URINE CANNABINOIDS (THC) Positive (50ng/ml); URINE COCAINE Positive (300ng/ml); URINE METHADONE Negative (300ng/ml); URINE OPIATES Negative (300ng/ml); URINE PHENCYCLIDINE Negative (25ng/ml)
[2023-10-08 16:11] LABS: BACTERIA 1+; EPITHELIAL CELLS 16-20; MUCOUS 1+; RBC 0-2 rbc/hpf (0-2)
== END 2023-10-08 19:21 | disposition home or self-care (01) ==
LOC: ED 14:43
PROVIDERS: Nurse Practitioner
DX: F19.10 Other psychoactive substance abuse, uncomplicated (principal); Z76.0 Encounter for issue of repeat prescription; F31.9 Bipolar disorder, unspecified; F41.9 Anxiety disorder, unspecified; Z88.8 Allergy status to other drugs, medicaments and biological substances; Z79.899 Other long term (current) drug therapy; Z79.2 Long term (current) use of antibiotics; Z98.890 Other specified postprocedural states; Z90.721 Acquired absence of ovaries, unilateral; Z87.891 Personal history of nicotine dependence

== ENCOUNTER 2023-10-19 14:50 | Emergency (ER) | payer OTHER ==
[~2023-10-19] VITALS: Wt 60.3 kg
[2023-10-19 14:56] VITALS: BP 119/62
[2023-10-19] MEDS ORDERED: DIAZEPAM 5 MG TAB PO ONE (15:05)
[2023-10-19] MEDS ORDERED: Ondansetron Hydrochloride 4 MG TAB PO ONE (15:05)
[2023-10-19] MEDS ORDERED: MORPHINE Sulfate 2 MG/ML SYR IM ONE (15:05)
[2023-10-19] MEDS ORDERED: TRAMADOL HCL50 MG PO (15:18)
[2023-10-19] MEDS ORDERED: METHOCARBAMOL750 M1 PO (15:18)
== END 2023-10-19 15:37 | disposition home or self-care (01) ==
LOC: ED 14:50
DX: M54.42 Lumbago with sciatica, left side (principal); F31.9 Bipolar disorder, unspecified; F41.9 Anxiety disorder, unspecified; Z88.8 Allergy status to other drugs, medicaments and biological substances; Z79.899 Other long term (current) drug therapy; Z79.2 Long term (current) use of antibiotics; Z98.890 Other specified postprocedural states; Z87.891 Personal history of nicotine dependence

== ENCOUNTER 2023-11-02 09:14 | Emergency (ER) | payer OTHER ==
[~2023-11-02] VITALS: Ht 157.4 cm; Wt 60.1 kg
[~2023-11-02 09:14] MED LIST changes: +METHOCARBAMOL750 M1 PO
[2023-11-02 09:16] VITALS: BP 136/83
[2023-11-02] MEDS ORDERED: ACETAMINOPHEN 325 MG TAB PO ONE (09:35)
[2023-11-02] MEDS ORDERED: LIDOCAINE 1 EA PATCH T ONE (09:35)
[2023-11-02] MEDS ORDERED: IBUPROFEN 400 MG TAB PO ONE (09:40)
[2023-11-02] MEDS ORDERED: OXYCODONE HCL (IR) 5 MG TAB PO ONE (09:40)
[2023-11-02 09:51] LABS: BASO % 0.5 % (0.0-1.0); EOS # 0.1 10*3/uL (0.0-0.4); EOS % 2.1 % (1.0-4.0); HEMATOCRIT 37.5 % (37.0-47.0); LYMPH # 1.1 10*3/uL (1.3-4.4); LYMPH % 18.9 % (27.0-41.0); MEAN CELL VOLUME 85.2 fl (81.0-99.0); MEAN CORPUSCULAR HGB 27.5 pg (27.0-31.0); MEAN CORPUSCULAR HGB CONC 32.3 g/dl (33.0-37.0); MEAN PLATELET VOLUME 9.4 fl (9.6-12.3); MONO # 0.3 10*3/uL (0.1-1.0); NEUT # 4.2 10*3/uL (2.3-7.9); NEUT % 73.3 % (47.0-73.0); PLATELET COUNT AUTOMATED 262 10*3/uL (130-400); RED CELL DISTRI WIDTH 14.4 % (0-14.5); WHITE BLOOD COUNT 5.8 10*3/uL (4.8-10.8)
[2023-11-02 10:34] LABS: ALKALINE PHOSPHATASE 112 U/L (46-116); BUN 11 mg/dl (9-23); CHLORIDE 106 mmol/L (98-107); POTASSIUM 3.6 mmol/L (3.4-5.1); SGPT/ALT 14 U/L (5-49); TOTAL PROTEIN 6.5 gm/dL (6.0-8.0)
[2023-11-02 10:36] LABS: ETHYL ALCOHOL < 3.0 mg/dl (<3)
[2023-11-02 11:06] LABS: URINE AMPHETAMINES Negative (1000ng/ml); URINE BARBITURATES Negative (200ng/ml); URINE BENZODIAZEPINES Positive (200ng/ml); URINE CANNABINOIDS (THC) Positive (50ng/ml); URINE COCAINE Positive (300ng/ml); URINE METHADONE Negative (300ng/ml); URINE OPIATES Negative (300ng/ml); URINE PHENCYCLIDINE Negative (25ng/ml)
[2023-11-02] MEDS ORDERED: TYLENOL EXTRA500 MG PO (11:48)
[2023-11-02] MEDS ORDERED: Motrin,Rufen400 MG PO (11:48)
[2023-11-02] MEDS ORDERED: ASPERCREME LID1 EACH T (11:48)
== END 2023-11-02 11:50 | disposition home or self-care (01) ==
LOC: ED 09:14
PROVIDERS: Emergency Medicine
DX: M54.42 Lumbago with sciatica, left side (principal); F19.90 Other psychoactive substance use, unspecified, uncomplicated; M25.552 Pain in left hip; Z88.8 Allergy status to other drugs, medicaments and biological substances; F41.9 Anxiety disorder, unspecified; F31.9 Bipolar disorder, unspecified; J44.9 Chronic obstructive pulmonary disease, unspecified; K21.9 Gastro-esophageal reflux disease without esophagitis; Z98.890 Other specified postprocedural states; Z90.49 Acquired absence of other specified parts of digestive tract; F12.90 Cannabis use, unspecified, uncomplicated; F15.10 Other stimulant abuse, uncomplicated; Z87.891 Personal history of nicotine dependence

== ENCOUNTER 2023-11-03 15:38 | Emergency (ER) | payer OTHER ==
[~2023-11-03] VITALS: Ht 157.4 cm; Wt 57.6 kg
[~2023-11-03 15:38] MED LIST changes: +ASPERCREME LID1 EACH T; +Motrin,Rufen400 MG PO
[2023-11-03 15:55] VITALS: BP 155/96
[2023-11-03] MEDS ORDERED: methylPREDNISolone sod succ 125 MG VIAL IM ONE (16:15)
[2023-11-03] MEDS ORDERED: Ketorolac Tromethamine 30 MG/ML VIAL IM ONE (16:15)
== END 2023-11-03 16:47 | disposition home or self-care (01) ==
LOC: ED 15:38
DX: M54.42 Lumbago with sciatica, left side (principal); F41.9 Anxiety disorder, unspecified; K21.9 Gastro-esophageal reflux disease without esophagitis; J45.909 Unspecified asthma, uncomplicated; F31.9 Bipolar disorder, unspecified; F12.90 Cannabis use, unspecified, uncomplicated; F15.10 Other stimulant abuse, uncomplicated; Z88.8 Allergy status to other drugs, medicaments and biological substances; Z98.890 Other specified postprocedural states; Z90.49 Acquired absence of other specified parts of digestive tract; Z87.891 Personal history of nicotine dependence

== ENCOUNTER 2023-11-16 10:39 | Emergency (ER) | payer OTHER ==
[~2023-11-16] VITALS: Ht 157.4 cm; Wt 57.6 kg
[2023-11-16 10:51] VITALS: BP 154/76
[2023-11-16] MEDS ORDERED: VISTARIL25 M2 PO (11:26)
[2023-11-16] MEDS ORDERED: hydrOXYzine pamoate 25 MG CAP PO ONE (11:30)
== END 2023-11-16 11:31 | disposition home or self-care (01) ==
LOC: ED 10:39
DX: F41.9 Anxiety disorder, unspecified (principal); Z76.0 Encounter for issue of repeat prescription; F31.9 Bipolar disorder, unspecified; J44.9 Chronic obstructive pulmonary disease, unspecified; K21.9 Gastro-esophageal reflux disease without esophagitis; F15.10 Other stimulant abuse, uncomplicated; Z88.8 Allergy status to other drugs, medicaments and biological substances; Z98.890 Other specified postprocedural states; Z90.49 Acquired absence of other specified parts of digestive tract; Z87.891 Personal history of nicotine dependence

== ENCOUNTER 2023-12-03 13:10 | Emergency (ER) | payer OTHER ==
[~2023-12-03] VITALS: Wt 68.0 kg
[~2023-12-03 13:10] MED LIST changes: +VISTARIL25 M2 PO
[2023-12-03 13:34] LABS: BASO % 0.6 % (0.0-1.0); EOS # 0.1 10*3/uL (0.0-0.4); EOS % 1.6 % (1.0-4.0); HEMATOCRIT 38.5 % (37.0-47.0); LYMPH # 1.2 10*3/uL (1.3-4.4); LYMPH % 25.2 % (27.0-41.0); MEAN CORPUSCULAR HGB 26.7 pg (27.0-31.0); MEAN CORPUSCULAR HGB CONC 32.2 g/dl (33.0-37.0); MEAN PLATELET VOLUME 9.5 fl (9.6-12.3); MONO # 0.3 10*3/uL (0.1-1.0); NEUT # 3.2 10*3/uL (2.3-7.9); NEUT % 65.2 % (47.0-73.0); PLATELET COUNT AUTOMATED 271 10*3/uL (130-400); RED BLOOD COUNT 4.64 10*6/uL (4.10-5.10); RED CELL DISTRI WIDTH 13.9 % (0-14.5); WHITE BLOOD COUNT 4.9 10*3/uL (4.8-10.8)
[2023-12-03 13:39] VITALS: BP 171/78
[2023-12-03 13:57] LABS: BUN 14 mg/dl (9-23); CHLORIDE 107 mmol/L (98-107); CPK 29 U/L (34-171); POTASSIUM 4.1 mmol/L (3.4-5.1)
[2023-12-03 13:58] LABS: ETHYL ALCOHOL < 3.0 mg/dl (<3)
[2023-12-03] MEDS ORDERED: OMEPRAZOLE 10 MG CAP PO ONE (14:00)
[2023-12-03] MEDS ORDERED: diphenhydrAMINE hydrochloride 25 MG CAP PO ONE (14:50)
[2023-12-03 16:03] LABS: BILIRUBIN Negative (Negative); BLOOD Negative (Negative); CLARITY Cloudy (Clear); COLOR Yellow (Yellow); GLUCOSE Negative (Negative); KETONE Negative (Negative); LEUKO ESTERASE 2+ (Negative); NITRITE Positive (Negative); SPECIFIC GRAVITY 1.015 (1.001-1.030); UROBILINOGEN 0.2 E.U./dl (0.0-1.0)
[2023-12-03 16:12] LABS: URINE AMPHETAMINES Positive (1000ng/ml); URINE BARBITURATES Negative (200ng/ml); URINE BENZODIAZEPINES Positive (200ng/ml); URINE CANNABINOIDS (THC) Positive (50ng/ml); URINE COCAINE Negative (300ng/ml); URINE METHADONE Negative (300ng/ml); URINE OPIATES Negative (300ng/ml); URINE PHENCYCLIDINE Negative (25ng/ml)
[2023-12-03 16:13] LABS: BACTERIA 4+; WBC 51-100 wbc/hpf (0-5)
[2023-12-03] MEDS ORDERED: SEPTDS PO (19:47)
== END 2023-12-03 19:52 | disposition home or self-care (01) ==
LOC: ED 13:10
PROVIDERS: Physician Assistant Medical
DX: N39.0 Urinary tract infection, site not specified (principal); F19.10 Other psychoactive substance abuse, uncomplicated; Z88.8 Allergy status to other drugs, medicaments and biological substances; Z79.899 Other long term (current) drug therapy; Z79.2 Long term (current) use of antibiotics; Z98.890 Other specified postprocedural states; Z90.721 Acquired absence of ovaries, unilateral; Z87.891 Personal history of nicotine dependence

== ENCOUNTER 2024-01-28 08:24 | Emergency (ER) | payer OTHER ==
[~2024-01-28] VITALS: Wt 60.8 kg
[~2024-01-28 08:24] MED LIST changes: +BUSPAR15 MG PO; +HYDROXYZINE HCL25 MG PO; +METRONIDAZOLE500 M1 PO; +NEURONTIN300 MG PO; +SEPTDS PO; +WAL-FEX ALLERG180 MG PO
[2024-01-28 08:45] VITALS: BP 149/92
[2024-01-28] MEDS ORDERED: AMOX-CLAV 875-1 EACH PO (08:55)
[2024-01-28] MEDS ORDERED: CEPACOL SORETH1 EACH PO (08:55)
[2024-01-28] MEDS ORDERED: MEDROL DOSEPAK4 MG PO (08:55)
[2024-01-28] MEDS ORDERED: GUAIFENESIN200 MG PO (08:55)
== END 2024-01-28 09:05 | disposition home or self-care (01) ==
LOC: ED 08:24
DX: J32.9 Chronic sinusitis, unspecified (principal); R30.9 Painful micturition, unspecified; R42 Dizziness and giddiness; F41.9 Anxiety disorder, unspecified; K21.9 Gastro-esophageal reflux disease without esophagitis; J45.909 Unspecified asthma, uncomplicated; F31.9 Bipolar disorder, unspecified; F12.90 Cannabis use, unspecified, uncomplicated; F17.290 Nicotine dependence, other tobacco product, uncomplicated; F15.10 Other stimulant abuse, uncomplicated; Z88.8 Allergy status to other drugs, medicaments and biological substances; Z90.49 Acquired absence of other specified parts of digestive tract; Z98.890 Other specified postprocedural states

== ENCOUNTER 2024-02-18 11:49 | Emergency (ER) | payer OTHER ==
[~2024-02-18] VITALS: Wt 61.2 kg
[~2024-02-18 11:49] MED LIST changes: +AMOX-CLAV 875-1 EACH PO; +CEPACOL SORETH1 EACH PO; +GUAIFENESIN200 MG PO
[2024-02-18 12:17] VITALS: BP 156/100
== END 2024-02-18 12:55 | disposition home or self-care (01) ==
LOC: ED 11:49
DX: R52 Pain, unspecified (principal); F17.200 Nicotine dependence, unspecified, uncomplicated; Z88.8 Allergy status to other drugs, medicaments and biological substances; Z79.2 Long term (current) use of antibiotics; Z79.899 Other long term (current) drug therapy; Z98.890 Other specified postprocedural states

== ENCOUNTER 2024-03-21 12:28 | Emergency (ER) | payer OTHER ==
[~2024-03-21] VITALS: Ht 160 cm; Wt 64.4 kg
[2024-03-21] MEDS ORDERED: methylPREDNISolone sod succ 125 MG VIAL IM ONE (13:00)
[2024-03-21] MEDS ORDERED: METHOCARBAMOL 500 MG TAB PO ONE (13:00)
[2024-03-21] MEDS ORDERED: PREDNISONE50 MG PO (13:06)
== END 2024-03-21 13:10 | disposition home or self-care (01) ==
LOC: ED 12:28
DX: M54.32 Sciatica, left side (principal); M25.552 Pain in left hip; F41.9 Anxiety disorder, unspecified; K21.9 Gastro-esophageal reflux disease without esophagitis; J45.909 Unspecified asthma, uncomplicated; F31.9 Bipolar disorder, unspecified; F17.200 Nicotine dependence, unspecified, uncomplicated; F12.90 Cannabis use, unspecified, uncomplicated; F15.10 Other stimulant abuse, uncomplicated; Z88.8 Allergy status to other drugs, medicaments and biological substances; Z98.890 Other specified postprocedural states; Z90.49 Acquired absence of other specified parts of digestive tract

== ENCOUNTER 2024-04-07 09:56 | Emergency (ER) | payer OTHER ==
[~2024-04-07] VITALS: Wt 61.2 kg
[~2024-04-07 09:56] MED LIST changes: +PREDNISONE50 MG PO
[2024-04-07 10:04] VITALS: BP 148/94
[2024-04-07] MEDS ORDERED: DOXEPIN HCL50 MG PO (10:08)
[2024-04-07 10:35] LABS: BILIRUBIN Negative (Negative); BLOOD Negative (Negative); CLARITY Clear (Clear); COLOR Yellow (Yellow); GLUCOSE Negative (Negative); KETONE Negative (Negative); LEUKO ESTERASE Negative (Negative); NITRITE Negative (Negative); PH 5.5 (4.5-8.0); SPECIFIC GRAVITY <= 1.005 (1.001-1.030); UROBILINOGEN 0.2 E.U./dl (0.0-1.0)
[2024-04-07 10:42] LABS: URINE AMPHETAMINES Negative (1000ng/ml); URINE BARBITURATES Negative (200ng/ml); URINE BENZODIAZEPINES Negative (200ng/ml); URINE CANNABINOIDS (THC) Positive (50ng/ml); URINE COCAINE Negative (300ng/ml); URINE METHADONE Negative (300ng/ml); URINE OPIATES Negative (300ng/ml); URINE PHENCYCLIDINE Negative (25ng/ml)
[2024-04-07] MEDS ORDERED: ALPRAZolam 0.25 MG TAB PO ONE (10:45)
[2024-04-07 10:57] LABS: BASO # 0.1 10*3/uL (0.0-0.1); BASO % 0.7 % (0.0-1.0); EOS # 0.2 10*3/uL (0.0-0.4); EOS % 2.4 % (1.0-4.0); HEMATOCRIT 39.3 % (37.0-47.0); MEAN CELL VOLUME 84.5 fl (81.0-99.0); MEAN CORPUSCULAR HGB 27.3 pg (27.0-31.0); MEAN CORPUSCULAR HGB CONC 32.3 g/dl (33.0-37.0); MEAN PLATELET VOLUME 8.8 fl (9.6-12.3); MONO # 0.5 10*3/uL (0.1-1.0); MONO % 7.8 % (3.0-9.0); NEUT # 4.5 10*3/uL (2.3-7.9); PLATELET COUNT AUTOMATED 302 10*3/uL (130-400); RED BLOOD COUNT 4.65 10*6/uL (4.10-5.10); RED CELL DISTRI WIDTH 15.5 % (0-14.5); WHITE BLOOD COUNT 6.8 10*3/uL (4.8-10.8)
[2024-04-07 11:08] LABS: WBC 0-2 wbc/hpf (0-5)
[2024-04-07 11:21] LABS: BUN 13 mg/dl (9-23); CHLORIDE 108 mmol/L (98-107); POTASSIUM 4.2 mmol/L (3.4-5.1)
[2024-04-07] MEDS ORDERED: XANAX1 MG PO (13:21)
[2024-04-08] MEDS ORDERED: VISTARIL25 MG PO (11:12)
== END 2024-04-07 14:10 | disposition home or self-care (01) ==
LOC: ED 09:56
PROVIDERS: Emergency Medicine
DX: F41.9 Anxiety disorder, unspecified (principal); F13.20 Sedative, hypnotic or anxiolytic dependence, uncomplicated; F32.A Depression, unspecified; F17.200 Nicotine dependence, unspecified, uncomplicated; Z88.8 Allergy status to other drugs, medicaments and biological substances; Z79.899 Other long term (current) drug therapy; Z98.890 Other specified postprocedural states; Z90.49 Acquired absence of other specified parts of digestive tract; Z90.721 Acquired absence of ovaries, unilateral

== ENCOUNTER 2024-04-08 06:01 | Emergency (ER) | payer OTHER ==
[~2024-04-08] VITALS: Ht 157.4 cm; Wt 62.1 kg
[~2024-04-08 06:01] MED LIST changes: +DOXEPIN HCL50 MG PO; +XANAX1 MG PO
[2024-04-08 06:37] LABS: BILIRUBIN Negative (Negative); BLOOD Negative (Negative); CLARITY Clear (Clear); COLOR Yellow (Yellow); GLUCOSE Negative (Negative); KETONE Negative (Negative); LEUKO ESTERASE Negative (Negative); NITRITE Negative (Negative); PH 5.5 (4.5-8.0); SPECIFIC GRAVITY <= 1.005 (1.001-1.030); UROBILINOGEN 0.2 E.U./dl (0.0-1.0)
[2024-04-08 06:38] LABS: BASO % 0.5 % (0.0-1.0); EOS # 0.2 10*3/uL (0.0-0.4); EOS % 2.6 % (1.0-4.0); HEMATOCRIT 41.1 % (37.0-47.0); MEAN CELL VOLUME 84.7 fl (81.0-99.0); MEAN CORPUSCULAR HGB 26.8 pg (27.0-31.0); MEAN CORPUSCULAR HGB CONC 31.6 g/dl (33.0-37.0); MONO # 0.5 10*3/uL (0.1-1.0); MONO % 6.6 % (3.0-9.0); NEUT # 5.2 10*3/uL (2.3-7.9); NEUT % 69.7 % (47.0-73.0); PLATELET COUNT AUTOMATED 310 10*3/uL (130-400); RED BLOOD COUNT 4.85 10*6/uL (4.10-5.10); RED CELL DISTRI WIDTH 15.6 % (0-14.5); WHITE BLOOD COUNT 7.4 10*3/uL (4.8-10.8)
[2024-04-08 06:48] LABS: URINE AMPHETAMINES Negative (1000ng/ml); URINE BARBITURATES Negative (200ng/ml); URINE BENZODIAZEPINES Positive (200ng/ml); URINE CANNABINOIDS (THC) Positive (50ng/ml); URINE COCAINE Negative (300ng/ml); URINE METHADONE Negative (300ng/ml); URINE OPIATES Negative (300ng/ml); URINE PHENCYCLIDINE Negative (25ng/ml)
[2024-04-08 07:08] LABS: ALKALINE PHOSPHATASE 114 U/L (46-116); BUN 10 mg/dl (9-23); CHLORIDE 108 mmol/L (98-107); POTASSIUM 4.1 mmol/L (3.4-5.1); SGPT/ALT 10 U/L (5-49); TOTAL PROTEIN 7.8 gm/dL (6.0-8.0)
[2024-04-08 07:08] LABS: BACTERIA 1+
[2024-04-08 07:18] LABS: ETHYL ALCOHOL < 3.0 mg/dl (<3)
[2024-04-08] MEDS ORDERED: VISTARIL25 MG PO (11:12)
[2024-04-08 11:38] VITALS: BP 150/88
== END 2024-04-08 11:20 | disposition home or self-care (01) ==
LOC: ED 06:01
PROVIDERS: Internal Medicine
DX: F32.9 Major depressive disorder, single episode, unspecified (principal); Z20.822 Contact with and (suspected) exposure to COVID-19; F41.9 Anxiety disorder, unspecified; K21.9 Gastro-esophageal reflux disease without esophagitis; J45.909 Unspecified asthma, uncomplicated; F19.10 Other psychoactive substance abuse, uncomplicated; F17.200 Nicotine dependence, unspecified, uncomplicated; F12.90 Cannabis use, unspecified, uncomplicated; F15.10 Other stimulant abuse, uncomplicated; Z79.899 Other long term (current) drug therapy; Z88.8 Allergy status to other drugs, medicaments and biological substances; Z90.49 Acquired absence of other specified parts of digestive tract; Z98.890 Other specified postprocedural states

== ENCOUNTER 2024-06-18 12:08 | Emergency (ER) | payer OTHER ==
[~2024-06-18] VITALS: Ht 157.4 cm; Wt 61.2 kg
[~2024-06-18 12:08] MED LIST changes: +VISTARIL25 MG PO
[2024-06-18 12:16] VITALS: BP 171/128
[2024-06-18] MEDS ORDERED: ATIVAN1 MG PO ×2 (12:33→12:37)
[2024-06-18] MEDS ORDERED: LORazepam 1 MG TAB PO ONE (12:35)
== END 2024-06-18 12:54 | disposition home or self-care (01) ==
LOC: ED 12:08
DX: F32.A Depression, unspecified (principal); F41.9 Anxiety disorder, unspecified; I10 Essential (primary) hypertension; E78.5 Hyperlipidemia, unspecified; F15.10 Other stimulant abuse, uncomplicated; F12.90 Cannabis use, unspecified, uncomplicated; F17.200 Nicotine dependence, unspecified, uncomplicated; Z88.8 Allergy status to other drugs, medicaments and biological substances; Z79.899 Other long term (current) drug therapy; Z98.890 Other specified postprocedural states; Z90.49 Acquired absence of other specified parts of digestive tract; Z90.721 Acquired absence of ovaries, unilateral

== ENCOUNTER → 2024-06-23 | Outpatient (CLI) | payer OTHER ==
[2024-06-23 07:37] LABS: BASO % 0.6 % (0.0-1.0); EOS # 0.2 10*3/uL (0.0-0.4); EOS % 2.4 % (1.0-4.0); HEMATOCRIT 43.6 % (37.0-47.0); MEAN CELL VOLUME 84.5 fl (81.0-99.0); MEAN CORPUSCULAR HGB 26.9 pg (27.0-31.0); MEAN CORPUSCULAR HGB CONC 31.9 g/dl (33.0-37.0); MEAN PLATELET VOLUME 9.1 fl (9.6-12.3); MONO # 0.6 10*3/uL (0.1-1.0); MONO % 8.1 % (3.0-9.0); NEUT # 4.4 10*3/uL (2.3-7.9); NEUT % 64.8 % (47.0-73.0); PLATELET COUNT AUTOMATED 288 10*3/uL (130-400); RED BLOOD COUNT 5.16 10*6/uL (4.10-5.10); RED CELL DISTRI WIDTH 14.8 % (0-14.5); WHITE BLOOD COUNT 6.8 10*3/uL (4.8-10.8)
[2024-06-23 08:31] LABS: ALKALINE PHOSPHATASE 103 U/L (46-116); BUN 10 mg/dl (9-23); CHLORIDE 109 mmol/L (98-107); POTASSIUM 4.1 mmol/L (3.4-5.1); SGPT/ALT 20 U/L (5-49); TOTAL PROTEIN 7.4 gm/dL (6.0-8.0)
[2024-06-24 15:07] LABS: ALBUMIN 3.6 g/dL (2.9-4.4); ALPHA-1-GLOBULIN 0.3 g/dL (0.0-0.4); BETA GLOBULIN 1.3 g/dL (0.7-1.3); GAMMA GLOBULIN 0.9 g/dL (0.4-1.8); GLOBULIN, TOTAL 3.5 g/dL (2.2-3.9)
== END | disposition home or self-care (01) ==
LOC: LAB 07:16
PROVIDERS: ATTEND Physician Assistant Medical
DX: L93.2 Other local lupus erythematosus (principal)

== ENCOUNTER 2024-06-25 12:07 | Emergency (ER) | payer OTHER ==
[~2024-06-25] VITALS: Ht 157.4 cm; Wt 61.2 kg
[2024-06-25 12:14] VITALS: BP 126/83
[2024-06-25] MEDS ORDERED: hydrOXYzine pamoate 25 MG CAP PO ONE (12:30)
== END 2024-06-25 12:50 | disposition home or self-care (01) ==
LOC: ED 12:07
DX: F41.9 Anxiety disorder, unspecified (principal); Z76.5 Malingerer [conscious simulation]; F32.A Depression, unspecified; J44.9 Chronic obstructive pulmonary disease, unspecified; K21.9 Gastro-esophageal reflux disease without esophagitis; F17.200 Nicotine dependence, unspecified, uncomplicated; Z88.8 Allergy status to other drugs, medicaments and biological substances; Z79.899 Other long term (current) drug therapy; Z98.890 Other specified postprocedural states; Z90.49 Acquired absence of other specified parts of digestive tract

== ENCOUNTER 2024-07-11 08:02 | Emergency (ER) | payer OTHER ==
[~2024-07-11] VITALS: Ht 157.4 cm; Wt 61.2 kg
[2024-07-11 08:05] VITALS: BP 149/74
[2024-07-11] MEDS ORDERED: FAMOTIDINE 50 ML IV ONE (08:10)
[2024-07-11] MEDS ORDERED: diphenhydrAMINE hydrochloride 50 MG/ML VIAL IV ONE (08:10)
[2024-07-11] MEDS ORDERED: Metoclopramide Hydrochloride 10 MG/2 ML VIAL IV ONE (08:10)
[2024-07-11] MEDS ORDERED: SODIUM CHLORIDE 0.9% 1,000 ML IV ONE (08:10)
[2024-07-11 08:21] LABS: BASO % 0.6 % (0.0-1.0); EOS # 0.1 10*3/uL (0.0-0.4); EOS % 0.9 % (1.0-4.0); HEMATOCRIT 44.4 % (37.0-47.0); MEAN CELL VOLUME 82.2 fl (81.0-99.0); MEAN CORPUSCULAR HGB 26.7 pg (27.0-31.0); MEAN CORPUSCULAR HGB CONC 32.4 g/dl (33.0-37.0); MEAN PLATELET VOLUME 9.1 fl (9.6-12.3); MONO # 0.5 10*3/uL (0.1-1.0); NEUT # 4.5 10*3/uL (2.3-7.9); NEUT % 69.2 % (47.0-73.0); PLATELET COUNT AUTOMATED 303 10*3/uL (130-400); RED CELL DISTRI WIDTH 14.6 % (0-14.5); WHITE BLOOD COUNT 6.5 10*3/uL (4.8-10.8)
[2024-07-11 09:07] LABS: BUN 8 mg/dl (9-23); CHLORIDE 110 mmol/L (98-107); POTASSIUM 3.3 mmol/L (3.4-5.1)
[2024-07-11] MEDS ORDERED: EMLA 2.5% 30GM30 GM PO (09:12)
[2024-07-11] MEDS ORDERED: DICLOFENAC SODI50 GM T (09:12)
[2024-07-11] MEDS ORDERED: ANTI-DIARRHEAL2 MG PO (09:36)
[2024-07-11] MEDS ORDERED: Ondansetron4 MG PO (09:36)
== END 2024-07-11 10:42 | disposition home or self-care (01) ==
LOC: ED 08:02
PROVIDERS: Emergency Medicine
DX: R11.2 Nausea with vomiting, unspecified (principal); R19.7 Diarrhea, unspecified; F31.9 Bipolar disorder, unspecified; J44.9 Chronic obstructive pulmonary disease, unspecified; F41.9 Anxiety disorder, unspecified; F17.200 Nicotine dependence, unspecified, uncomplicated; Z88.8 Allergy status to other drugs, medicaments and biological substances; Z79.899 Other long term (current) drug therapy; Z98.890 Other specified postprocedural states; Z90.49 Acquired absence of other specified parts of digestive tract; Z90.721 Acquired absence of ovaries, unilateral

== ENCOUNTER 2024-08-05 14:19 | Emergency (ER) | payer OTHER ==
[~2024-08-05] VITALS: Ht 157.4 cm; Wt 59.9 kg
[~2024-08-05 14:19] MED LIST changes: +ANTI-DIARRHEAL2 MG PO; +DICLOFENAC SODI50 GM T; +EMLA 2.5% 30GM30 GM PO; +Ondansetron4 MG PO
[2024-08-05 14:27] VITALS: BP 153/75
[2024-08-05] MEDS ORDERED: CETIRIZINE10 MG PO (15:05)
[2024-08-05] MEDS ORDERED: Cetirizine Hydrochloride 10 MG TAB PO ONE (15:10)
== END 2024-08-05 15:16 | disposition home or self-care (01) ==
LOC: ED 14:19
DX: J30.9 Allergic rhinitis, unspecified (principal); F31.9 Bipolar disorder, unspecified; K21.9 Gastro-esophageal reflux disease without esophagitis; F41.9 Anxiety disorder, unspecified; F17.200 Nicotine dependence, unspecified, uncomplicated; Z88.8 Allergy status to other drugs, medicaments and biological substances; Z79.899 Other long term (current) drug therapy; Z98.890 Other specified postprocedural states; Z90.49 Acquired absence of other specified parts of digestive tract; Z90.721 Acquired absence of ovaries, unilateral

== ENCOUNTER 2024-09-24 16:45 | Emergency (ER) | payer OTHER ==
[~2024-09-24] VITALS: Ht 157.4 cm; Wt 61.2 kg
[~2024-09-24 16:45] MED LIST changes: +BUSPIRONE HCL30 MG PO; +CENTRUM ADULT80 MCG PO; +CETIRIZINE10 MG PO; +FEXOFENADINE H180 M1 PO; +GABAPENTIN ER300 MG PO; +NITROFURANTOIN100 M9 PO; +REXULTI2 MG PO; +TOBRAMYCIN AND10 ML OP; +ZANAFLEX4 M1 PO
[2024-09-24 16:58] VITALS: BP 124/95
[2024-09-24 17:38] LABS: BASO % 0.7 % (0.0-1.0); EOS # 0.1 10*3/uL (0.0-0.4); EOS % 2.4 % (1.0-4.0); HEMATOCRIT 37.8 % (37.0-47.0); MEAN CELL VOLUME 84.6 fl (81.0-99.0); MEAN CORPUSCULAR HGB 27.7 pg (27.0-31.0); MEAN CORPUSCULAR HGB CONC 32.8 g/dl (33.0-37.0); MEAN PLATELET VOLUME 9.5 fl (9.6-12.3); MONO # 0.5 10*3/uL (0.1-1.0); MONO % 7.8 % (3.0-9.0); NEUT # 3.6 10*3/uL (2.3-7.9); NEUT % 62.1 % (47.0-73.0); PLATELET COUNT AUTOMATED 227 10*3/uL (130-400); RED BLOOD COUNT 4.47 10*6/uL (4.10-5.10); RED CELL DISTRI WIDTH 15.5 % (0-14.5); WHITE BLOOD COUNT 5.7 10*3/uL (4.8-10.8)
[2024-09-24 17:55] LABS: BILIRUBIN Negative (Negative); BLOOD Negative (Negative); CLARITY Clear (Clear); COLOR Yellow (Yellow); GLUCOSE Negative (Negative); KETONE Negative (Negative); LEUKO ESTERASE Trace (Negative); NITRITE Negative (Negative); SPECIFIC GRAVITY <= 1.005 (1.001-1.030); UROBILINOGEN 0.2 E.U./dl (0.0-1.0)
[2024-09-24 18:02] LABS: BACTERIA 2+
[2024-09-24 18:03] LABS: URINE AMPHETAMINES Negative (1000ng/ml); URINE BARBITURATES Negative (200ng/ml); URINE BENZODIAZEPINES Negative (200ng/ml); URINE CANNABINOIDS (THC) Positive (50ng/ml); URINE COCAINE Negative (300ng/ml); URINE METHADONE Negative (300ng/ml); URINE OPIATES Negative (300ng/ml); URINE PHENCYCLIDINE Negative (25ng/ml)
[2024-09-24 18:03] LABS: BUN 11 mg/dl (9-23); CHLORIDE 108 mmol/L (98-107); LIPASE 48 U/L (12-53); POTASSIUM 3.7 mmol/L (3.4-5.1)
[2024-09-24 18:04] LABS: ETHYL ALCOHOL 33.9 mg/dl (<3)
[2024-09-25] MEDS ORDERED: ATIVAN1 MG PO (10:30)
== END 2024-09-24 19:33 | disposition home or self-care (01) ==
LOC: ED 16:45
PROVIDERS: Internal Medicine
DX: F41.9 Anxiety disorder, unspecified (principal); N39.0 Urinary tract infection, site not specified; Z88.8 Allergy status to other drugs, medicaments and biological substances; Z79.899 Other long term (current) drug therapy; Z98.890 Other specified postprocedural states; Z90.49 Acquired absence of other specified parts of digestive tract; Z87.891 Personal history of nicotine dependence

== ENCOUNTER 2024-09-25 05:59 | Emergency (ER) | payer OTHER ==
[~2024-09-25] VITALS: Ht 152.4 cm; Wt 59.0 kg
[2024-09-25 06:01] VITALS: BP 148/78
[2024-09-25] MEDS ORDERED: diazePAM 10 MG/2 ML SYR IV ONE (06:15)
[2024-09-25 06:32] LABS: BASO % 0.7 % (0.0-1.0); EOS # 0.2 10*3/uL (0.0-0.4); EOS % 4.5 % (1.0-4.0); HEMATOCRIT 40.5 % (37.0-47.0); MEAN CELL VOLUME 84.6 fl (81.0-99.0); MEAN CORPUSCULAR HGB 27.1 pg (27.0-31.0); MEAN CORPUSCULAR HGB CONC 32.1 g/dl (33.0-37.0); MEAN PLATELET VOLUME 9.6 fl (9.6-12.3); MONO # 0.5 10*3/uL (0.1-1.0); MONO % 8.8 % (3.0-9.0); NEUT % 56.4 % (47.0-73.0); PLATELET COUNT AUTOMATED 238 10*3/uL (130-400); RED BLOOD COUNT 4.79 10*6/uL (4.10-5.10); RED CELL DISTRI WIDTH 15.8 % (0-14.5); WHITE BLOOD COUNT 5.3 10*3/uL (4.8-10.8)
[2024-09-25 06:42] LABS: URINE AMPHETAMINES Negative (1000ng/ml); URINE BARBITURATES Negative (200ng/ml); URINE BENZODIAZEPINES Negative (200ng/ml); URINE CANNABINOIDS (THC) Positive (50ng/ml); URINE COCAINE Negative (300ng/ml); URINE METHADONE Negative (300ng/ml); URINE OPIATES Negative (300ng/ml); URINE PHENCYCLIDINE Negative (25ng/ml)
[2024-09-25 06:56] LABS: BUN 13 mg/dl (9-23); CHLORIDE 108 mmol/L (98-107); ETHYL ALCOHOL < 3.0 mg/dl (<3); POTASSIUM 3.7 mmol/L (3.4-5.1)
[2024-09-25] MEDS ORDERED: Ziprasidone Mesylate 20 MG VIAL IM ONE (07:10)
[2024-09-25] MEDS ORDERED: ATIVAN1 MG PO (10:30)
== END 2024-09-25 10:52 | disposition home or self-care (01) ==
LOC: ED 05:59
PROVIDERS: Emergency Medicine
DX: F31.9 Bipolar disorder, unspecified (principal); F12.10 Cannabis abuse, uncomplicated; N28.9 Disorder of kidney and ureter, unspecified; R45.6 Violent behavior; Z88.8 Allergy status to other drugs, medicaments and biological substances; Z79.899 Other long term (current) drug therapy; Z98.890 Other specified postprocedural states; Z90.49 Acquired absence of other specified parts of digestive tract; Z87.891 Personal history of nicotine dependence

== ENCOUNTER 2024-11-27 11:42 | Emergency (ER) | payer OTHER ==
[~2024-11-27] VITALS: Ht 157.4 cm; Wt 61.2 kg
[~2024-11-27 11:42] MED LIST changes: +AZELASTINE137 MCG/0. INH; +HYDROXYCHLOROQ200 M1 PO
[2024-11-27 11:55] VITALS: BP 127/82
[2024-11-27] MEDS ORDERED: GOOD NEIGHBOR L10 MG PO (14:38)
== END 2024-11-27 15:15 | disposition home or self-care (01) ==
LOC: ED 11:42
DX: R09.82 Postnasal drip (principal); F17.200 Nicotine dependence, unspecified, uncomplicated; Z88.8 Allergy status to other drugs, medicaments and biological substances; Z79.899 Other long term (current) drug therapy; Z98.890 Other specified postprocedural states; Z90.49 Acquired absence of other specified parts of digestive tract

== ENCOUNTER 2024-11-28 10:24 | Emergency (ER) | payer OTHER ==
[~2024-11-28 10:24] MED LIST changes: +GOOD NEIGHBOR L10 MG PO
== END 2024-11-28 19:28 | disposition left against medical advice (07) ==
LOC: ED 10:24
DX: R13.10 Dysphagia, unspecified (principal); Z53.21 Procedure and treatment not carried out due to patient leaving prior to being seen by health care provider

== ENCOUNTER 2024-12-28 11:09 | Emergency (ER) | payer OTHER ==
[~2024-12-28] VITALS: Ht 157.4 cm; Wt 59.0 kg
[2024-12-28] MEDS ORDERED: diazePAM 5 MG TAB PO ONE (12:05)
[2024-12-28 12:28] VITALS: BP 175/78
== END 2024-12-28 13:10 | disposition left against medical advice (07) ==
LOC: ED 11:09
DX: F13.10 Sedative, hypnotic or anxiolytic abuse, uncomplicated (principal); F41.9 Anxiety disorder, unspecified; F17.200 Nicotine dependence, unspecified, uncomplicated; Z88.8 Allergy status to other drugs, medicaments and biological substances; Z79.899 Other long term (current) drug therapy; Z90.49 Acquired absence of other specified parts of digestive tract; Z98.890 Other specified postprocedural states; Z90.721 Acquired absence of ovaries, unilateral

== ENCOUNTER 2024-12-28 15:56 | Emergency (ER) | payer OTHER ==
[~2024-12-28] VITALS: Wt 59.0 kg
[2024-12-28 16:19] VITALS: BP 160/138
[2024-12-28 16:22] LABS: BASO # 0.1 10*3/uL (0.0-0.1); BASO % 0.9 % (0.0-1.0); EOS # 0.1 10*3/uL (0.0-0.4); EOS % 1.4 % (1.0-4.0); MEAN CELL VOLUME 84.1 fl (81.0-99.0); MEAN CORPUSCULAR HGB 28.2 pg (27.0-31.0); MEAN PLATELET VOLUME 9.2 fl (9.6-12.3); MONO # 0.5 10*3/uL (0.1-1.0); MONO % 8.2 % (3.0-9.0); NEUT # 3.8 10*3/uL (2.3-7.9); NEUT % 59.9 % (47.0-73.0); NUCLEATED RED BLOOD CELL 0.0 % (0.0-0.0); NUCLEATED RED BLOOD CELL 0.0 10*3/uL (0.0-0.0); PLATELET COUNT AUTOMATED 229 10*3/uL (130-400); RED CELL DISTRI WIDTH 14.3 % (0-14.5)
[2024-12-28 16:42] LABS: BUN 14 mg/dl (9-23); CPK 28 U/L (34-171)
[2024-12-28 16:43] LABS: ETHYL ALCOHOL < 3.0 mg/dl (<3)
[2024-12-28] MEDS ORDERED: POTASSIUM CHLORIDE 20 MEQ TAB PO ONE (16:55)
[2024-12-28 17:32] LABS: BILIRUBIN Negative (Negative); BLOOD Negative (Negative); CLARITY Cloudy (Clear); COLOR Yellow (Yellow); KETONE Negative (Negative); LEUKO ESTERASE 1+ (Negative); NITRITE Negative (Negative); PH 5.5 (4.5-8.0); SPECIFIC GRAVITY 1.015 (1.001-1.030); UROBILINOGEN 0.2 E.U./dl (0.0-1.0)
[2024-12-28 17:38] LABS: URINE AMPHETAMINES Negative (1000ng/ml); URINE BARBITURATES Negative (200ng/ml); URINE BENZODIAZEPINES Positive (200ng/ml); URINE CANNABINOIDS (THC) Positive (50ng/ml); URINE COCAINE Negative (300ng/ml); URINE METHADONE Negative (300ng/ml); URINE OPIATES Negative (300ng/ml); URINE PHENCYCLIDINE Negative (25ng/ml)
[2024-12-28 17:43] LABS: BACTERIA 1+; EPITHELIAL CELLS 16-20; FINE GRANULAR CAST 0-2; RBC 0-2 rbc/hpf (0-2)
== END 2024-12-28 19:08 | disposition left against medical advice (07) ==
LOC: ED 15:56
PROVIDERS: Nurse Practitioner Family
DX: R45.851 Suicidal ideations (principal); F41.9 Anxiety disorder, unspecified; K21.9 Gastro-esophageal reflux disease without esophagitis; J45.909 Unspecified asthma, uncomplicated; F31.9 Bipolar disorder, unspecified; F17.200 Nicotine dependence, unspecified, uncomplicated; Z88.8 Allergy status to other drugs, medicaments and biological substances; Z79.899 Other long term (current) drug therapy; Z98.890 Other specified postprocedural states; Z53.29 Procedure and treatment not carried out because of patient's decision for other reasons

== ENCOUNTER 2025-01-12 08:02 | Emergency (ER) | payer OTHER ==
[~2025-01-12] VITALS: Ht 157.4 cm; Wt 63.5 kg
[2025-01-12 08:13] VITALS: BP 132/118
[2025-01-12] MEDS ORDERED: LORazepam 0.5 MG TAB PO ONE (09:15)
[2025-01-12] MEDS ORDERED: Metoclopramide Hydrochloride 10 MG/2 ML VIAL IV ONE (09:15)
[2025-01-12] MEDS ORDERED: diphenhydrAMINE hydrochloride 50 MG/ML VIAL IV ONE (09:15)
[2025-01-12] MEDS ORDERED: SODIUM CHLORIDE 0.9% 1,000 ML IV ONE (09:15)
[2025-01-12 09:27] LABS: BASO # 0.0 10*3/uL (0.0-0.1); BASO % 0.2 % (0.0-1.0); EOS # 0.1 10*3/uL (0.0-0.4); EOS % 1.3 % (1.0-4.0); MEAN CELL VOLUME 82.8 fl (81.0-99.0); MEAN CORPUSCULAR HGB 28.0 pg (27.0-31.0); MEAN PLATELET VOLUME 8.9 fl (9.6-12.3); MONO # 0.3 10*3/uL (0.1-1.0); MONO % 7.3 % (3.0-9.0); NEUT # 3.0 10*3/uL (2.3-7.9); NEUT % 65.2 % (47.0-73.0); NUCLEATED RED BLOOD CELL 0.0 % (0.0-0.0); NUCLEATED RED BLOOD CELL 0.0 10*3/uL (0.0-0.0); PLATELET COUNT AUTOMATED 232 10*3/uL (130-400); RED CELL DISTRI WIDTH 14.4 % (0-14.5)
[2025-01-12 09:50] LABS: BUN 11.0 mg/dl (9-23)
[2025-01-12] MEDS ORDERED: AVPAK AZITHROM250 M1 PO (12:27)
[2025-01-18] MEDS ORDERED: ALBUTEROL SULFATE HF INH (19:49)
[2025-01-18] MEDS ORDERED: CETIRIZINE HYDR10 MG PO (19:53)
[2025-01-18] MEDS ORDERED: BREYNA 160-4.10.3 GM INH (19:55)
[2025-01-18] MEDS ORDERED: MUCUS RELIEF600 MG PO (19:59)
[2025-01-18] MEDS ORDERED: ATARAX,VISTARIL50 MG PO (19:59)
[2025-01-20] MEDS ORDERED: PREDNISONE10 MG PO (09:15)
[2025-01-20] MEDS ORDERED: Vibra-Tab100 MG PO (09:15)
== END 2025-01-12 11:12 | disposition home or self-care (01) ==
LOC: ED 08:02
PROVIDERS: Emergency Medicine
DX: R51.9 Headache, unspecified (principal); F41.9 Anxiety disorder, unspecified; R05.9 Cough, unspecified; R09.81 Nasal congestion; F31.9 Bipolar disorder, unspecified; J44.9 Chronic obstructive pulmonary disease, unspecified; I10 Essential (primary) hypertension; E78.5 Hyperlipidemia, unspecified; F17.200 Nicotine dependence, unspecified, uncomplicated; Z88.8 Allergy status to other drugs, medicaments and biological substances; Z79.899 Other long term (current) drug therapy; Z98.890 Other specified postprocedural states; Z90.49 Acquired absence of other specified parts of digestive tract; Z90.721 Acquired absence of ovaries, unilateral

== ENCOUNTER 2025-03-08 06:36 | Emergency (ER) | payer OTHER ==
[~2025-03-08] VITALS: Ht 167.6 cm; Wt 72.6 kg
[~2025-03-08 06:36] MED LIST changes: +ALBUTEROL SULFATE HF INH; +ATARAX,VISTARIL50 MG PO; +AVPAK AZITHROM250 M1 PO; +BREYNA 160-4.10.3 GM INH; +CETIRIZINE HYDR10 MG PO; +MUCUS RELIEF600 MG PO; +Vibra-Tab100 MG PO
[2025-03-08 06:49] VITALS: BP 171/107
[2025-03-08] MEDS ORDERED: HYDROXYZINE HCL25 MG PO (07:19)
[2025-03-08] MEDS ORDERED: diazePAM 5 MG TAB PO ONE (07:20)
== END 2025-03-08 07:24 | disposition home or self-care (01) ==
LOC: ED 06:36
DX: F41.9 Anxiety disorder, unspecified (principal); K21.9 Gastro-esophageal reflux disease without esophagitis; J45.909 Unspecified asthma, uncomplicated; F32.A Depression, unspecified; F17.210 Nicotine dependence, cigarettes, uncomplicated; F12.90 Cannabis use, unspecified, uncomplicated; Z98.890 Other specified postprocedural states; Z90.49 Acquired absence of other specified parts of digestive tract; Z88.8 Allergy status to other drugs, medicaments and biological substances

== ENCOUNTER 2025-03-17 07:00 | Emergency (ER) | payer OTHER ==
[~2025-03-17] VITALS: Ht 157.4 cm; Wt 49.9 kg
[2025-03-17] MEDS ORDERED: LORazepam 1 MG TAB PO ONE (07:20)
[2025-03-17 07:42] LABS: BASO # 0.1 10*3/uL (0.0-0.1); BASO % 0.7 % (0.0-1.0); EOS # 0.2 10*3/uL (0.0-0.4); EOS % 2.1 % (1.0-4.0); MEAN CELL VOLUME 86.4 fl (81.0-99.0); MEAN CORPUSCULAR HGB 28.0 pg (27.0-31.0); MEAN PLATELET VOLUME 9.4 fl (9.6-12.3); MONO # 0.5 10*3/uL (0.1-1.0); MONO % 6.3 % (3.0-9.0); NEUT # 5.3 10*3/uL (2.3-7.9); NEUT % 70.0 % (47.0-73.0); NUCLEATED RED BLOOD CELL 0.0 % (0.0-0.0); NUCLEATED RED BLOOD CELL 0.0 10*3/uL (0.0-0.0); PLATELET COUNT AUTOMATED 291 10*3/uL (130-400); RED CELL DISTRI WIDTH 14.8 % (0-14.5)
[2025-03-17 07:52] LABS: ACT PARTIAL THROMBO TIME 27.9 SECONDS (20.0-32.1)
[2025-03-17 08:21] LABS: BILIRUBIN Negative (Negative); BLOOD Negative (Negative); CLARITY Clear (Clear); COLOR Yellow (Yellow); KETONE Negative (Negative); LEUKO ESTERASE Negative (Negative); NITRITE Negative (Negative); PH 6.0 (4.5-8.0); SPECIFIC GRAVITY <= 1.005 (1.001-1.030); UROBILINOGEN 0.2 E.U./dl (0.0-1.0)
[2025-03-17 08:21] LABS: BUN 7 mg/dl (9-23)
[2025-03-17 08:48] LABS: BACTERIA 1+; WBC 0-2 wbc/hpf (0-5)
[2025-03-17] MEDS ORDERED: XANAX1 MG PO (08:58)
[2025-03-17] MEDS ORDERED: ALPRAZolam 0.25 MG TAB PO ONE ×2 (09:15)
== END 2025-03-17 09:13 | disposition home or self-care (01) ==
LOC: ED 07:00
PROVIDERS: Emergency Medicine
DX: F41.9 Anxiety disorder, unspecified (principal); F32.A Depression, unspecified; F15.10 Other stimulant abuse, uncomplicated; F12.10 Cannabis abuse, uncomplicated; F17.200 Nicotine dependence, unspecified, uncomplicated; Z88.8 Allergy status to other drugs, medicaments and biological substances; Z79.899 Other long term (current) drug therapy; Z90.49 Acquired absence of other specified parts of digestive tract; Z98.890 Other specified postprocedural states